=== PATIENT | male | born 1955 | race African-American/Black ===

== ENCOUNTER 2019-05-15 12:50 | Outpatient (RCR) | payer OTHER, SELFPAY ==
[2019-05-15 13:40] LABS: Hemoglobin A1C 7.7 % (<5.7)
[2019-05-15 13:49] LABS: Alanine Aminotransferase 54 U/L (4-50); Albumin Level 4.8 g/dL (3.5-5.1); Alkaline Phosphatase 90 U/L (38-126); Aspartate Amino Transferase 59 U/L (17-59); Bilirubin,Total 0.8 mg/dL (0.2-1.3); Blood Urea Nitrogen 12 mg/dL (9-20); Carbon Dioxide 29 mmol/L (22-30); Chloride 100 mmol/L (98-107); Cholesterol 204 mg/dL (0-200); Estimated Glomerular Filt Rate > 60; Glucose 115 mg/dL (75-110); HDL Direct 42 mg/dL; Potassium 4.3 mmol/L (3.4-5.0); Sodium 139 mmol/L (137-145); Triglycerides 99 mg/dL (<150)
[2019-05-15 14:00] LABS: LDL Cholesterol Direct 132 mg/dL
[2019-05-17 12:14] LABS: Protein S Antigen, Total 116 % normal (70-140)
== END 2019-08-13 23:59 | disposition home or self-care (01) ==
LOC: ANHLAB 12:50
DX: Z00.00 Encounter for general adult medical examination without abnormal findings (principal)
CPT/HCPCS: 36415; 80053; 80061; 83036; 84443; 85305

== ENCOUNTER 2019-05-30 10:30 | Outpatient (CLI) | payer OTHER, SELFPAY ==
--- NOTE | ~2019-05-30 | XR_ITS ---
EXAMINATION: XR chest 2V EXAM DATE: 05/30/2019 10:53 INDICATION: Pneumonia follow-up. TECHNIQUE: Frontal and lateral projections of the chest obtained and reviewed. Comparison is made to prior examination from 05/17/2019. FINDINGS: Cardiomegaly, pulmonary vascular congestion, with interval improvement. No confluent conso lidation, pneumothorax or pleural effusion suspected, resolution of previously seen scattered left pe rihilar predominantly linear opacities. Mild thoracic spondylosis. IMPRESSION: Improving cardiomegaly, pulmonary vascular congestion. Reviewed, dictated and finalized at location B. CLASSROOM TUTOR
== END 2019-05-30 10:31 | disposition home or self-care (01) ==
DX: J18.9 Pneumonia, unspecified organism (principal); I51.7 Cardiomegaly; R09.89 Other specified symptoms and signs involving the circulatory and respiratory systems
CPT/HCPCS: 71046

== ENCOUNTER 2019-06-05 12:57 | Inpatient (IN) | payer OTHER, SELFPAY ==
[2019-06-05] VITALS (10 sets, daily range): BP systolic 135–183; BP diastolic 83–104; PULSE 84–105; RESP 16–22; TEMP 36.3–36.9; O2SAT 87–99; BMI 32.1
--- NOTE | ~2019-06-05 | CT_ITS ---
EXAMINATION: CTA chest PE protocol DATE: 06/05/2019 17:28 INDICATION: Dyspnea TECHNIQUE: Computed tomography angiography (CTA) of the chest was performed with 100 mL Omnipaque-350 intravenous contrast timed to evaluate the pulmonary arteries. Coronal maximum intensity projection 3D-reconstructions were created by the technologist. Automated exposure control and iterative reconst ruction technique were employed. Exam dose: 574.94 mGy-cm total exam DLP. COMPARISON: 06/05/2021 view chest FINDINGS: There is moderate opacification of the pulmonary arteries by contrast material and no evide nce of pulmonary embolism. No thoracic aortic aneurysm or dissection. No pericardial or pleural effusion. No hilar or mediastinal mass lesion or lymphadenopathy. There is an approximately 8 x 11.5 mm mass in the right lower lobe anterior basilar segment, suspicio us for primary bronchogenic carcinoma. Bilateral patchy groundglass infiltrates are noted, suggesting small airways disease. There are recent posterior left ninth and 10th nondisplaced early healing rib fractures. No pneumotho rax is evident. No osteolytic or osteoblastic lesions are noted. IMPRESSION: 8 x 11.5 mm right lower lobe anterior basal segment mass, suspicious for primary broncho genic carcinoma Patchy bilateral groundglass pulmonary infiltrates, suggesting small airways disease No evidence of pulmonary embolism Recent posterior left ninth and 10th nondisplaced rib fractures Dr. Concepcion telephoned the report including right lower lobe mass suspicious for primary bronchogenic erick ng cancer as well as the absence of pulmonary emboli and the presence of posterior left ninth and 10t h rib fractures to emergency room physician Dr. Contreras on 02/03/2020 at 1740 hours Reviewed, dictated and finalized at Location A. Reviewed, dictated and finalized at location B. UDING DEPARTMENT SUPERVISOR IMPRESSION: 8 x 11.5 mm right lower lobe anterior basal segment mass, suspicio us for primary bronchogenic carcinoma Patchy bilateral groundglass pulmonary infiltrates, suggesting small airways di sease No evidence of pulmonary embolism Recent posterior left ninth and 10th nondisplaced rib fractures Dr. Concepcion telephoned the report including right lower lobe mass suspicious for p rimary bronchogenic lung cancer as well as the absence of pulmonary emboli and the presence of posterior left ninth and 10th rib fractures to emergency room britney Contreras on 02/03/2020 at 1740 hours
--- NOTE | ~2019-06-05 | XR_ITS ---
EXAMINATION: XR chest 2V EXAM DATE: 06/05/2019 14:08 INDICATION: Shortness of breath, low oxygen saturation. TECHNIQUE: Frontal and lateral projections of the chest obtained and reviewed. Comparison is made to prior examination from 05/30/2019. FINDINGS: The lungs are clear. There are no pleural effusions. The cardiomediastinal silhouette is within normal limits. There is no pneumothorax suspected. The bones and soft tissues are unremarkab le. IMPRESSION: Normal chest x-ray exam. Reviewed, dictated and finalized at location A. [employer] SHAPER K[employer]ITTED GOODS IMPRESSION: Normal chest x-ray exam.
--- NOTE | ~2019-06-05 | XR_ITS ---
XR chest 2V DATE: 06/07/2019 11:25 INDICATION: Pneumonia TECHNIQUE: PA and lateral chest COMPARISON: 06/22/2019 CT pulmonary scan 06/05/2021 view chest FINDINGS: 8.5 x 11 mm mass is noted at the right lung base upon comparison with 06/05/2019 CT pulmonary scan. No pulmonary consolidation, pleural effusion or pneumothorax. Heart size is within normal range. Mild aortic unfolding. No hilar or mediastinal enlargement. IMPRESSION: 8.5 x 11 mm right lower lung mass, suspicious for primary bronchogenic carcinoma. PET/CT scan should be considered. Reviewed, dictated and finalized at location B. ISH MAKER HELPER IMPRESSION: 8.5 x 11 mm right lower lung mass, suspicious for primary bronchoge mary carcinoma. PET/CT scan should be considered.
--- NOTE | 2019-06-05 13:24 | ECG_ITS ---
Measurements Intervals [place] Rate: 99 P: 48 SD: 155 QRS: -22 QRSD: 105 T: 81 QT: 336 QTc: 433 Interpretive Statements SINUS RHYTHM LEFT ATRIAL ENLARGEMENT POSSIBLE LEFT VENTRICULAR HYPERTROPHY DELAYED PRECORDIAL R/S TRANSITION MINIMAL Q WAVES- LATERAL LEADS BORDERLINE ST-T WAVE ABNORMALITY- LATERAL LEADS BORDERLINE ECG Electronically Signed On 06-05-2019 13:36:54 GENERAL LEDGER BOOKKEEPER by Cornelio Bill D.O.
[2019-06-05 13:43] LABS: Basophils Absolute Auto 0.1 K/mm3 (0.0-0.1); Basophils Percent Auto 0.7 % (0.2-1.2); Eosinophils Absolute Auto 0.1 K/mm3 (0-0.3); Eosinophils Percent Auto 0.8 % (0-4.4); Hematocrit 52.4 % (42.0-52.0); Hemoglobin 15.7 g/dL (14.0-18.0); Immature Granulocyte Absolute 0.09 K/mm3 (0.00-0.031); Lymphocytes Absolute Auto 1.78 K/mm3 (0.9-3.2); Lymphocytes Percent Auto 18.8 % (18.3-44.2); Mean Corpuscular Hemoglobin 25.2 pg (26-34); Mean Corpuscular Volume 84.1 fl (80-100); Mean Platelet Volume 11.1 fl (7.4-10.4); Monocytes Absolute Auto 0.7 K/mm3 (0.1-0.6); Monocytes Percent Auto 7.4 % (2.6-8.5); Neutrophils Absolute Auto 6.8 K/mm3 (1.3-6.7); Neutrophils Percent Auto 71.3 % (45.5-73.1); Nucleated Red Blood Cells Absolute Auto 0.1 K/mm3 (0.0-0.012); Nucleated Red Blood Cells Perc 1.2 % (0.0-0.2); Platelet Count Result 655 k/mm3 (150-375); Red Blood Count 6.23 M/mm3 (4.6-6.20); Red Cell Distribution Width 21.2 % (11.5-14.5); White Blood Count 9.5 K/mm3 (4.5-10.0)
[2019-06-05 13:55] LABS: Blood Urea Nitrogen 16 mg/dL (9-20); Carbon Dioxide 24 mmol/L (22-30); Chloride 104 mmol/L (98-107); Estimated Glomerular Filt Rate > 60; Glucose 104 mg/dL (75-110); Potassium 4.2 mmol/L (3.4-5.0); Sodium 141 mmol/L (137-145)
--- NOTE | 2019-06-05 15:41 | ED.SOB ---
HPI - SOB/Dyspnea General Chief Complaint: Shortness of Breath/Dyspnea Stated Complaint: sent by pmd to get oxygen level checked Time Seen by Provider: 06/05/19 15:37 Source: patient Mode of arrival: ambulatory Limitations: no limitations History of Present Illness HPI Narrative: Pt is a 63 y/o male who presents to the ED, from his PCP's office d/t low O2 Saturation. Pt states that he is intermittently SOB since he was Dx with pneumonia on 05/03/19. Pt denies cough, CP, fever, wheezing, or sore throat. MD elicited complaint: shortness of breath (low O2 Sat) Pertinent past history: pneumonia Onset (ago): day(s) (1) Associated symptoms: denies other symptoms Related Data Allergies Allergy/AdvReac Type Severity Reaction Status Date / Time No Known Allergies Allergy Unverified 08/26/18 19:44 Review of Systems Review of Systems: All systems reviewed & are unremarkable except as noted in HPI and below Constitutional: Constitutional: Denies fever(s) ENT: Denies sore throat Cardiovascular: Cardiovascular: Denies chest pain Respiratory: Respiratory: Denies cough, Reports dyspnea and Denies wheezing PMFSH Past Medical History Medical History (Updated 06/05/19 @ 18:30 by Jose Carlos Contreras DO) Anemia HTN (hypertension) Pneumonia Surgical History Surgical History (Updated 06/05/19 @ 15:53 by Shandra Bunch) H/O elbow surgery rt Social History Social History (Updated 06/05/19 @ 15:52 by Shandra Bunch) Smoking status: Former smoker Gender identity (if verbalized by the patient): Male Exam Narrative: Exam Narrative: APPEARANCE: No acute distress, nontoxic, resting in bed EYES: EOMI HEENT: Normocephalic, atraumatic, OMM RESPIRATORY: No respiratory distress Clear to auscultation bilaterally with no rhonchi wheezing or rales. CARDIOVASCULAR: Regular rate and rhythm without murmurs rubs or gallops. ABDOMINAL: Soft, nontender, nondistended, no rebound or guarding MUSCULOSKELETAl: Moves all extremities. No clubbing, cyanosis or edema. NEURO: Awake and alert. Following commands, speech normal, no focal deficits SKIN:: Warm, dry. No rashes lesions or abrasions PSYCHIATRIC: Normal affect/mood, Course Course Emergency Course: Discussed with CHAYA Ash presentation work-up. Agrees with admission at this time. Discussed with patient and family results of workup and diagnosis. Discussed need for admission. Patient and family understand and agree to current treatment plan. Discussed with patient lung mass concern for lung cancer Vital Signs Vital signs: Vital Signs Temperature 97.4 F L 06/05/19 13:25 Pulse Rate 105 H 06/05/19 13:25 Respiratory Rate 22 H 06/05/19 13:25 Blood Pressure 165/83 H 06/05/19 13:25 Pulse Oximetry 96 06/05/19 13:25 Temperature 97.4 F L 06/05/19 13:25 Pulse Rate 99 06/05/19 17:55 Respiratory Rate 16 06/05/19 17:55 Blood Pressure 156/84 H 06/05/19 17:55 Pulse Oximetry 92 06/05/19 17:55 MDM - SOB/Dyspnea Lab Data Result diagrams: 06/05/19 13:31 06/05/19 13:31 Labs: Lab Results 06/05/19 06/05/19 06/05/19 Range/Units 13:31 13:31 16:33 WBC 9.5 (4.5-10.0) K/mm3 RBC 6.23 H (4.6-6.20) M/mm3 Hgb 15.7 (14.0-18.0) g/dL Hct 52.4 H (42.0-52.0) % MCV 84.1 (80-100) fl MCH 25.2 L (26-34) pg MCHC 30.0 L (32-36) g/dl RDW 21.2 H (11.5-14.5) % Plt Count 655 H (150-375) k/mm3 MPV 11.1 H (7.4-10.4) fl Immature Gran % (Auto) 1.0 H (0-0.5) % Neut % (Auto) 71.3 (45.5-73.1) % Lymph % (Auto) 18.8 (18.3-44.2) % Anson % (Auto) 7.4 (2.6-8.5) % Eos % (Auto) 0.8 (0-4.4) % Baso % (Auto) 0.7 (0.2-1.2) % Lymph # (Auto) 1.78 (0.9-3.2) K/mm3 Anson # (Auto) 0.7 H (0.1-0.6) K/mm3 Eos # (Auto) 0.1 (0-0.3) K/mm3 Baso # (Auto) 0.1 (0.0-0.1) K/mm3 Abs Immat Gran (auto) 0.09 H (0.00-0.031) K/mm3 Absolute Neuts (auto) 6.8 H (1.3-6.7) K/mm3 Absolute
[2019-06-05] MEDS: ALBUTEROL SULFATE NEB 2.5 MG/0.5 ML INH 5 MG INHALATION ×2 (16:07→22:43)
[2019-06-05] MEDS: IPRATROPIUM BR 0.02% INH SOLN 0.5 MG/2.5 ML VIAL INHALATION ×2 (16:07→22:42)
[2019-06-05 16:15] LABS: Alveolar/Arterial O2 Gradient 91.6 mmHg; Base Excess ABG -0.4 mEq/l (+/-2.0); Fractional Inspired Oxygen 28 %; HCO3 ABG 23.4 mEq/l (22.0-26.0); Oxygen Content ABG 20.7 %vol (16.0-22.0); Oxygen Saturation ABG 93.6 % (95.0-100.0); Oxyhemoglobin 90.5 % THb (90.0-100.0); PO2 ABG 65.6 mmHg (80.0-100.0); PO2 FiO2 Ratio Arterial Blood 2.34 %; Site Drawn LEFT BRACHIAL; Total Hemoglobin 16.3 g/dL (12.0-18.0)
[2019-06-05 16:16] LABS: Device NASAL CANNULA
[2019-06-05 16:54] LABS: Prothrombin Time 12.9 Seconds (11.1-14.7)
[2019-06-05 16:55] LABS: Partial Thromboplastin Time 39.3 SECONDS (22.3-36.8)
[2019-06-05 17:08] LABS: NT Pro B Type Natriuretic Pept 58 PG/ML (5-100)
[2019-06-05 17:11] LABS: Troponin I < 0.012 ng/mL (0.000-0.034)
[2019-06-05 19:05] LABS: Lactic Acid Reflex 0.9 mmol/L (0.7-2.1)
--- NOTE | 2019-06-05 20:53 | ADMGEN ---
This patient, Kumar Henao, was admitted to [facility] Surg Room 316-02. Patient/family oriented to hospital policies and general routines including ID bracelet, bed and alarms, visiting hours, pain management, procedures, bathroom and other care routines, personal items, smoking policy, room service/diet, and visiting hours. Valuables list has been completed. Information on how to activate the Rapid Response Team has been discussed. Patient/Family are encouraged to report perceived risks to care and to ask questions if they do not understand what they are told or what they should do.
[2019-06-05 22:07] LABS: Glucose Point of Care 150 (65-105)
[2019-06-06] VITALS (13 sets, daily range): BP systolic 133–148; BP diastolic 83–89; PULSE 82–91; RESP 18–20; TEMP 36.1–36.9; O2SAT 91–96
[2019-06-06] MEDS: ALBUTEROL SULFATE NEB 2.5 MG/0.5 ML INH 5 MG INHALATION ×4 (03:47→21:51)
[2019-06-06] MEDS: IPRATROPIUM BR 0.02% INH SOLN 0.5 MG/2.5 ML VIAL INHALATION ×4 (03:47→21:51)
[2019-06-06 06:15] LABS: Basophils Percent Auto 0.4 % (0.2-1.2); Eosinophils Absolute Auto 0.1 K/mm3 (0-0.3); Eosinophils Percent Auto 0.7 % (0-4.4); Hematocrit 48.2 % (42.0-52.0); Hemoglobin 14.2 g/dL (14.0-18.0); Immature Granulocyte Absolute 0.07 K/mm3 (0.00-0.031); Immature Granulocyte Percent A 0.9 % (0-0.5); Lymphocytes Absolute Auto 1.71 K/mm3 (0.9-3.2); Lymphocytes Percent Auto 22.6 % (18.3-44.2); Mean Corpuscular HGB Conc 29.5 g/dl (32-36); Mean Corpuscular Hemoglobin 24.9 pg (26-34); Mean Corpuscular Volume 84.6 fl (80-100); Mean Platelet Volume 11.3 fl (7.4-10.4); Monocytes Absolute Auto 0.6 K/mm3 (0.1-0.6); Monocytes Percent Auto 7.7 % (2.6-8.5); Neutrophils Absolute Auto 5.1 K/mm3 (1.3-6.7); Neutrophils Percent Auto 67.7 % (45.5-73.1); Nucleated Red Blood Cells Absolute Auto 0.1 K/mm3 (0.0-0.012); Nucleated Red Blood Cells Perc 1.2 % (0.0-0.2); Platelet Count Result 552 k/mm3 (150-375); Red Cell Distribution Width 20.7 % (11.5-14.5); White Blood Count 7.6 K/mm3 (4.5-10.0)
[2019-06-06 06:25] LABS: Blood Urea Nitrogen 14 mg/dL (9-20); Calcium 9.3 mg/dL (8.4-10.2); Carbon Dioxide 26 mmol/L (22-30); Chloride 99 mmol/L (98-107); Estimated CRCL calculation 65 ml/min; Estimated Glomerular Filt Rate > 60; Glucose 123 mg/dL (75-110); Potassium 3.6 mmol/L (3.4-5.0); Sodium 137 mmol/L (137-145)
[2019-06-06 07:26] LABS: Hypochromasia 1+ (NORMAL); Platelet Estimate Increased (Adequate)
[2019-06-06 08:19] LABS: Magnesium 2.1 mg/dL (1.6-2.3)
--- NOTE | 2019-06-06 12:55 | PM.IMHP ---
H&P: HPI History of Present Illness Chief complaint: community-acquires pneumonia,lung mass,acute respi Narrative: Kumar Henao is a 63 year old male with past medical history of diabetes hypertension and long history of smoke he had been seen by his primary care physician was hypoxic % to emergency department for further evaluation patient had a CT scan of the chest which is negative for pulmonary emboli but does show pneumonia patient has a pneumonia most likely community-acquired as well as a mass patient is being treated with Rocephin and azithromycin is feeling little better compared to when he arrived, he denies any chest pain palpitation fever or chills, his is present in the room Review of Systems Review of Systems: All systems reviewed & are unremarkable except as noted in HPI and below PMFSH Past Medical History Medical History (Updated 06/06/19 @ 13:07 by Norberto Quinonez MD) Anemia Diabetes HTN (hypertension) Pneumonia Surgical History Surgical History (Updated 06/05/19 @ 15:53 by Shandra Bunch) H/O elbow surgery rt Social History Social History (Updated 06/05/19 @ 15:52 by Shandra Bunch) Smoking packs per day: 0.5 Smoking cigarettes per day: 10.0 Years smoked: 40 Smoking pack-years: 20.00 Smoking status: Former smoker Tobacco type: cigarettes Alcohol intake: former Substance use: never Gender identity (if verbalized by the patient): Male Spiritual care concerns: No Agree to blood products: No Meds Home Medications and Allergies Home Medications Medication Instructions Recorded Confirmed Type amlodipine 5 mg PO DAILY 06/05/19 06/05/19 History lisinopril 10 mg PO DAILY 06/05/19 06/05/19 History metformin 500 mg PO DAILY 06/05/19 06/05/19 History Allergies Allergy/AdvReac Type Severity Reaction Status Date / Time No Known Allergies Allergy Unverified 08/26/18 19:44 Vital Signs Vital Signs - 24 hr 06/05/19 13:25 06/05/19 15:43 06/05/19 16:18 Temperature 97.4 F L Pulse Rate 105 H 98 100 Respiratory Rate 22 H 22 H 20 Blood Pressure 165/83 H 178/104 H Pulse Oximetry 96 87 L 06/05/19 16:27 06/05/19 16:34 06/05/19 17:55 Temperature Pulse Rate 101 H 99 99 Respiratory Rate 18 16 Blood Pressure 183/95 H 156/84 H Pulse Oximetry 99 92 06/05/19 20:30 06/05/19 22:00 06/05/19 22:42 Temperature 98.3 F 98.5 F Pulse Rate 85 87 84 Respiratory Rate 18 18 18 Blood Pressure 155/93 H 135/86 Pulse Oximetry 93 94 92 06/05/19 22:52 06/06/19 03:49 06/06/19 03:54 Temperature Pulse Rate 87 82 88 Respiratory Rate 18 18 18 Blood Pressure Pulse Oximetry 06/06/19 05:58 06/06/19 08:25 06/06/19 08:34 Temperature 98.4 F Pulse Rate 84 84 88 Respiratory Rate 18 20 20 Blood Pressure 133/89 Pulse Oximetry 92 94 Exam Const: General: comfortable and no acute distress HENMT: General nose exam: Normal nares present Mouth: Yes moist mucous membranes Eyes: General: appearance normal, both eyes and all related structures Sclera: sclerae normal Neck: Neck: supple Chest: Other: No obvious deformity Resp: Other: Bilateral fair air entry with rhonchi Cardio: Rate: regular rate Rhythm: regular rhythm GI: GI Palp: Yes Soft to palpation Skin: General skin exam: normal color and no rashes or lesions noted Neuro: Speech: normal speech Sensory Exam: normal sensation Extrem: General: normal to inspection Psych: Affect: Anxious affect present H&P: Results Labs Labs: Short CBC 06/05/19 06/06/19 Range/Units 13:31 05:44 WBC 9.5 7.6 (4.5-10.0) K/mm3 Hgb 15.7 14.2 (14.0-18.0) g/dL Hct 52.4 H 48.2 (42.0-52.0) % Plt Count 655 H 552 H (150-375) k/mm3 BMP 06/05/19 06/06/19 13:31 05:44 Sodium 141 137 Potassium 4.2 3.6 Chloride 104 99 Carbon Dioxide 24 26 BUN 16 14 Creatinine 1.00 1.10 Glucose 104 123 H Calcium 10.0 9.3 Cardiac Enzymes 06/05/19 Range/Uni
[2019-06-06] MEDS: AMLODIPINE BESYLATE 5 MG TABLET PO (14:17)
[2019-06-06] MEDS: lisinopriL 10 MG TABLET PO (14:17)
--- NOTE | 2019-06-06 17:25 | PM.CNPUL ---
Assessment and Plan Assessment and plan (1) Nodule of right lung: Code(s): R91.1 - Solitary pulmonary nodule Status: Acute Assessment and Plan: There is a nodule 8 x 11.5 mm in the RLL, which will be followed after discharge. He is acutely ill, on O2, antibiotics, and this is small enough and non-urgent. It is far enough from the chest wall that he is at risk for a ptx wit ng CT guided biopsy, not close enough to an airway to access by bronchoscopy. If cancer, this is stage I. Explained to the patient and that he needs to recover from this episode, have follow-up in the office including probable repeat chest CT possible PET scan. 06/05/2019 admitted with hypoxemia, infiltrates/pulm edema, RLL nodule 8 x 11.5; needs op f/u for nodule; suspected COPD and LAYLA. No tobacco x 6 weeks. Starting Symbicort, getting ApneaLink and echo. Wean O2. May be ready to go home 1-2 d. (2) Acute respiratory failure with hypoxia: Code(s): J96.01 - Acute respiratory failure with hypoxia Status: Acute Assessment and Plan: He was hypoxemic at his primary care physician yesterday, now is on3 L/min with saturation 92-96%. His saturations improving and this can be weaned. He needs home oxygen study before discharge. (3) Tobacco abuse, in remission: Code(s): F17.201 - Nicotine dependence, unspecified, in remission Status: Acute Assessment and Plan: Recently quit about 6 weeks ago. He has a 20 pack-year history has also smoked some marijuana. He needs to avoid secondhand smoke. (4) Shortness of Breath: Code(s): R06.02 - Shortness of breath Status: Acute Assessment and Plan: This has improved since admission. He will need pulmonary function tests in 6-8 weeks to evaluate for COPD. Will start Symbicort nowl in addition to the nebulized bronchodilator therapy that he is on. This may help with the chronic coughing and sputum production. His says that he has been coughing with morning sputum production not daily, but often, for the last 6 months. May have COPD. His shortness of breath now is due to pneumonia. because have shown pulmonary edema and he has high blood pressure it is reasonable to get an echocardiogram. (5) Community acquired pneumonia: Code(s): J18.9 - Pneumonia, unspecified organism Status: Acute Assessment and Plan: He has infiltrates which appeared May 17, 2 weeks after falling and breaking 2 ribs on the left side. Some of the area may have been due to contusion. He has green sputum, cough, shortness of breath and hypoxemia, better with O2, antibiotics and bronchodilators. (6) HTN (hypertension): Code(s): I10 - Essential (primary) hypertension Status: Acute Assessment and Plan: Blood pressure is running 140-150 systolic. He has not been compliant with meds at home and recently had a 2nd low-dose medication added. He just stopped taking his meds for a month, no reason. CXR shows pulmonary vascular congestion. (7) Snoring: Code(s): R06.83 - Snoring Status: Acute Assessment and Plan: Will check Apnea Link tonight, on lower O2 than he is on now. On 3 L/min sat is now 96%, so this can be weaned. History of Present Illness History of Present Illness Consult date: 06/06/19 Chief complaint: community-acquires pneumonia,lung mass,acute respi Narrative: NEW CONSULT: Dr. Quinonez consulted me to see this pa
[2019-06-07] VITALS (10 sets, daily range): BP systolic 150–151; BP diastolic 87–94; PULSE 78–110; RESP 18–20; TEMP 36.5–36.7; O2SAT 83–96
--- NOTE | 2019-06-07 08:00 | ECHO_ITS ---
Patient Info Name: Kumar Henao Age: 63 years : 1955 Gender: Male Ht: 66 in Wt: 211 lbs BSA: 2.15 m2 HR: 91 bpm BP: 143 / 83 mmHg Technical Quality: Good Exam Date: 06/07/2019 10:02 AM Exam Location: [facility] Pulmonary Exam Room: [facility] Patient Status: Inpatient Admit Date: 06/05/2019 Staff Ordering Physician: Lissa Stoll MD Creamery Worker: Liliana Schmidt RDCS Attending Provider: Parviz Church MD Referring Physician: Jerman GUZMAN; Exam Type: CA echo doppler color flow Study Info Indications - short of breath Complete two-dimensional, color flow and Doppler transthoracic echocardiogram is performed. Summary 1. Left ventricular chamber dimension is normal. 2. Left ventricular systolic function is normal, estimated at 65-70%. 3. There is moderately increased left ventricular wall thickness. 4. The left ventricular diastolic function is grade I diastolic dysfunction. 5. E/e' 11 is mildly elevated. 6. Left atrial chamber dimension is mildly enlarged. 7. Right atrial chamber dimension is mildly enlarged. 8. There is trace tricuspid valve regurgitation. 9. No pulmonary hypertension, estimated pulmonary arterial systolic pressure is 32 mmHg. 10. There is trace pulmonic regurgitation. Left Ventricle E/e' 11 is mildly elevated. Left ventricular chamber dimension is normal. Left ventricular systolic function is normal, estimated at 65-70%. There is moderately increased left ventricular wall thickness. The left ventricular diastolic function is grade I diastolic dysfunction. Right Ventricle Right ventricular chamber dimension is normal. Right ventricular systolic function is normal. Left Atria Left atrial chamber dimension is mildly enlarged. Right Atria Right atrial chamber dimension is mildly enlarged. Aortic Valve The aortic valve is trileaflet. There is no aortic valve stenosis. There is no aortic valve regurgitation. Pulmonic Valve There is trace pulmonic regurgitation. Mitral Valve There is no mitral valve stenosis. There is no mitral valve regurgitation. Tricuspid Valve There is trace tricuspid valve regurgitation. No pulmonary hypertension, estimated pulmonary arterial systolic pressure is 32 mmHg. Pericardium/Pleural There is no pericardial effusion. Inferior Vena Cava Normal inferior vena cava with >50% collapse upon inspiration consistent with normal right atrial pressure, 5 mmHg. Aorta The aortic root size at the sinus of Valsalva is normal. Left Ventricular Outflow Tract Name Value Normal LVOT 2D LVOT Diameter 2.1 cm LVOT Doppler LVOT Peak Gradient 4 mmHg LVOT Mean Gradient 3 mmHg LVOT VTI 18 cm LVOT VTI/AV VTI Ratio 0.6 LVOT Stroke Volume 65 ml LVOT CO 17.2 l/min LVOT CI 8.0 l/min/m2 Pulmonic Valve Name Value
[2019-06-07] MEDS: ALBUTEROL SULFATE NEB 2.5 MG/0.5 ML INH 5 MG INHALATION ×2 (08:03→13:28)
[2019-06-07] MEDS: IPRATROPIUM BR 0.02% INH SOLN 0.5 MG/2.5 ML VIAL INHALATION ×2 (08:03→13:28)
[2019-06-07] MEDS: metFORMIN HCL XR 500 MG TAB.SR.24H PO (08:51)
[2019-06-07] MEDS: lisinopriL 10 MG TABLET PO (08:51)
[2019-06-07] MEDS: AMLODIPINE BESYLATE 5 MG TABLET PO (08:51)
--- NOTE | 2019-06-07 13:56 | PCRCNOTE ---
HOME O2 EVAL COMPLETE, NO REQUIREMENTS
--- NOTE | 2019-06-07 14:41 | PM.PNPUL ---
Progress Note: A&P Assessment and Plan (1) Nodule of right lung: Code(s): R91.1 - Solitary pulmonary nodule Status: Acute Assessment and Plan: Nodule 8 x 11.5 mm in the RLL,will follow after discharge. improved from current illness, O2 weaned off. It is not close to the periphery of the lung and he is at risk for a pneumothorax CT guided biopsy; it is not close enough to an airway to access by bronchoscopy. If cancer, this is stage I. Explained to the patient and that he needs to recover from this episode, have follow-up in the office including chest CT-PET scan. 06/05/2019 admitted with hypoxemia, infiltrates/pulm edema, RLL nodule 8 x 11.5; needs op f/u for nodule; suspected COPD and LAYLA. No tobacco x 6 weeks. Cont Symbicort, morning labs are being drawn now. Out patient PET-CT. Echo and ApneaLink results pending. OK to go home today.. (2) Acute respiratory failure with hypoxia: Code(s): J96.01 - Acute respiratory failure with hypoxia Status: Acute Assessment and Plan: He was hypoxemic at his primary care physician yesterday, now is on room air. O2 was weaned. (3) Tobacco abuse, in remission: Code(s): F17.201 - Nicotine dependence, unspecified, in remission Status: Acute Assessment and Plan: Recently quit about 6 weeks ago. He has a 20 pack-year history has also smoked some marijuana. He needs to avoid secondhand smoke. (4) Shortness of Breath: Code(s): R06.02 - Shortness of breath Status: Acute Assessment and Plan: This has improved since admission. He will need pulmonary function tests in 6-8 weeks to evaluate for COPD. Will start Symbicort nowl in addition to the nebulized bronchodilator therapy that he is on. This may help with the chronic coughing and sputum production. His says that he has been coughing with morning sputum production not daily, but often, for the last 6 months. May have COPD. His shortness of breath now is due to pneumonia. because have shown pulmonary edema and he has high blood pressure it is reasonable to get an echocardiogram. (5) Community acquired pneumonia: Code(s): J18.9 - Pneumonia, unspecified organism Status: Acute Assessment and Plan: He has infiltrates which appeared May 17, 2 weeks after falling and breaking 2 ribs on the left side. Some of the area may have been due to contusion. He has green sputum, cough, shortness of breath and hypoxemia, better with O2, antibiotics and bronchodilators. (6) HTN (hypertension): Code(s): I10 - Essential (primary) hypertension Status: Acute Assessment and Plan: Blood pressure is running 140-150 systolic. He has not been compliant with meds at home and recently had a 2nd low-dose medication added. He just stopped taking his meds for a month, no reason. CXR shows nodule in RLL. (7) Snoring: Code(s): R06.83 - Snoring Status: Acute Assessment and Plan: Will check Apnea Link results from last night. Subjective Date/time seen: 06/07/19 14:41 This 63 yo man is seen in follow up for RLL nodule noted on CXR when admitted with pneumonia with underlying COPD. He feels great, has been weaned off O2, Home O2 evaluation is negative for requiring O2. He wants to go home. Appears stable, echo results and ApneaLink results pending. He is stable for discharge today. Review of Systems ENT: Reports nasal conges
[2019-06-07 15:01] LABS: Hematocrit 51.9 % (42.0-52.0); Hemoglobin 15.2 g/dL (14.0-18.0); Mean Corpuscular HGB Conc 29.3 g/dl (32-36); Mean Corpuscular Hemoglobin 24.9 pg (26-34); Mean Corpuscular Volume 85.1 fl (80-100); Mean Platelet Volume 11.8 fl (7.4-10.4); Platelet Count Result 648 k/mm3 (150-375); Red Cell Distribution Width 21.2 % (11.5-14.5); White Blood Count 7.9 K/mm3 (4.5-10.0)
[2019-06-07 15:04] LABS: Blood Urea Nitrogen 13 mg/dL (9-20); Calcium 10.2 mg/dL (8.4-10.2); Carbon Dioxide 29 mmol/L (22-30); Chloride 102 mmol/L (98-107); Estimated CRCL calculation 71 ml/min; Estimated Glomerular Filt Rate > 60; Glucose 133 mg/dL (75-110); Potassium 4.6 mmol/L (3.4-5.0); Sodium 143 mmol/L (137-145)
--- NOTE | 2019-06-07 15:11 | PM.DS ---
DS: Diagnosis Admitting Diagnosis Admitting Diagnosis: Acute respiratory failure with hypoxia Discharge Diagnosis (1) Acute respiratory failure with hypoxia: Code(s): J96.01 - Acute respiratory failure with hypoxia Status: Acute Assessment and Plan: Kumar Henao is a 63 year old male with past medical history of diabetes hypertension and long history of smoke he had been seen by his primary care physician was hypoxic % to emergency department for further evaluation patient had a CT scan of the chest which is negative for pulmonary emboli but does show pneumonia patient has a pneumonia most likely community-acquired as well as a mass patient is being treated with Rocephin and azithromycin is feeling little better compared to when he arrived, he denies any chest pain palpitation fever or chills, his is present in the room (2) Community acquired pneumonia: Code(s): J18.9 - Pneumonia, unspecified organism Status: Acute Assessment and Plan: Patient is being treated with Rocephin azithromycin will repeat checks x-ray is in 2 days to further evaluate (3) Lung mass: Code(s): R91.8 - Other nonspecific abnormal finding of lung field Status: Acute Assessment and Plan: Patient with history of long time smoking now with a pulmonary mass will consult Dr. Stoll further recommendation (4) Diabetes: Code(s): E11.9 - Type 2 diabetes mellitus without complications Status: Acute Assessment and Plan: Will continue home regimen and monitor (5) HTN (hypertension): Code(s): I10 - Essential (primary) hypertension Status: Acute Assessment and Plan: Will continue home regimen and monitor DS: Summary Hospital Course Reason for hospitalization: Kumar Henao is a 63 year old male with past medical history of diabetes hypertension and long history of smoke he had been seen by his primary care physician was hypoxic % to emergency department for further evaluation patient had a CT scan of the chest which is negative for pulmonary emboli but does show pneumonia patient has a pneumonia most likely community-acquired as well as a mass patient is being treated with Rocephin and azithromycin is feeling little better compared to when he arrived, he denies any chest pain palpitation fever or chills, Today patient was seen by Dr. Stoll, patient is clinically stable was started on symbicort, he will follow up as an outpatient for [facility], and [facility] echo for futher evaluation, will discharge patient home today. Hospital Course: Kumar Henao is a 63 year old male with past medical history of diabetes hypertension and long history of smoke he had been seen by his primary care physician was hypoxic % to emergency department for further evaluation patient had a CT scan of the chest which is negative for pulmonary emboli but does show pneumonia patient has a pneumonia most likely community-acquired as well as a mass patient is being treated with Rocephin and azithromycin is feeling little better compared to when he arrived, he denies any chest pain palpitation fever or chills, his is present in the room Status at Discharge Cognitive/behavioral status at discharge: Patient is bed baseline Functional status at discharge: independent ambulation Overall status at discharge: patient is back to baseline Time Spent with Patient Time attestation: Total time spent providing and/or coordinating discharge services: Patient was seen and examined at the time of the discharge Condition at discharge is stable Code status: Full code. Time spent preparing discharge summary, discharge medications, discussing discharge planning with field nurse case manager and patient is 35 minutes. Time spent: Greater than 30 minutes Exam Const: General: comfortable and no acute distress HENMT: General nose exam: Normal nares present Mouth: Yes moist mucous membranes Eyes: General: appearance normal, both eyes an
== END 2019-06-07 15:30 | disposition home or self-care (01) | DRG 139 ==
LOC: ANHED 18:33 → ANH3MEDSUR 19:01
PROVIDERS: Emergency Medicine; Admitting Provider Internal Medicine; Emergency Provider Emergency Medicine; Visit Provider Family Medicine
DX: J18.9 Pneumonia, unspecified organism (principal); J96.01 Acute respiratory failure with hypoxia; E11.9 Type 2 diabetes mellitus without complications; I10 Essential (primary) hypertension; R91.1 Solitary pulmonary nodule; Z87.891 Personal history of nicotine dependence; Z91.14 Patient's other noncompliance with medication regimen; H91.92 Unspecified hearing loss, left ear; R06.83 Snoring
CPT/HCPCS: 36415; 36600; 71046; 71275; 80048; 82805; 83605; 83735; 83880; 84484; 85025; 85027; 85610; 85730; 87040; 87804; 93005; 93306; 94618; 94640; 94762; 96365; 99285; A9270; J0456; J0696; Q9967

== ENCOUNTER 2019-07-11 11:01 | Outpatient (CLI) | payer OTHER, SELFPAY ==
--- NOTE | ~2019-07-11 | PE_ITS ---
EXAMINATION: PET skull to mid thigh DATE: 07/11/2019 13:30 INDICATION: Solitary pulmonary nodule. TECHNIQUE: Blood glucose level was 98 mg/dL. 8.959 mCi of 18-fluorodeoxyglucose (18-FDG) was administ ered i.v. Low dose computed tomography (CT) images were acquired from the base of the brain to the pr oximal thighs for attenuation correction and anatomic localization. Automated exposure control was em ployed. Dose-length product (DLP) was 935 mGy-cm. Positron emission tomography (PET) images were acqu ired in the same distribution. COMPARISON: Chest CT 06/05/2019 FINDINGS: Head/neck: There is increased activity in the oral cavity, prevertebral muscles, glottis, and right p terygoid muscle without CT correlate, likely physiologic. There are no pathologically enlarged lymph nodes. Chest: There is mild emphysema. There is a 10 mm nodule in right lung lower lobe without increased ac tivity. No pleural effusion. Cardiomegaly is noted. There are coronary artery calcifications. No lizzie cardial effusion. Calcified left hilar and mediastinal lymph nodes are consistent with old granulomat ous disease. Abdomen/pelvis/proximal thighs: The liver is normal. There are gallstones in the gallbladder, which i s normal in size. There is mild splenomegaly. Calcifications in the spleen are consistent with old gr anulomatous disease. The pancreas, adrenal glands, and kidneys are normal. There are no dilated loops of bowel. There is an umbilical hernia containing fat. There are no pathologically enlarged lymph no car. There is no free intraperitoneal fluid. The prostate is mildly enlarged. There is increased acti vity in multiple vertebral bodies without CT correlate, likely bone marrow stimulation. IMPRESSION: 1. Stable 10 mm nodule in right lung lower lobe without increased activity, probably benign. Noncont rast low-dose chest CT is recommended in 6 months. Reviewed, dictated and finalized at location A. IMPRESSION: 1. Stable 10 mm nodule in right lung lower lobe without increased activity, pr obably benign. Noncontrast low-dose chest CT is recommended in 6 months.
[2019-07-11 11:19] LABS: Glucose Point of Care 98 (65-105)
== END 2019-07-11 11:02 | disposition home or self-care (01) ==
PROVIDERS: PCP Nurse Practitioner Family; Visit Provider Internal Medicine Critical Care Medicine
DX: R91.1 Solitary pulmonary nodule (principal); E11.9 Type 2 diabetes mellitus without complications
CPT/HCPCS: 78815; A9552

== ENCOUNTER 2021-08-25 23:36 | Emergency (ER) | payer OTHER, SELFPAY ==
[2021-08-25 23:46] VITALS: BP 141/79; PULSE 88; RESP 18; TEMP 36.3; O2SAT 98
--- NOTE | 2021-08-26 01:21 | ED.SKABFB ---
HPI - Skin/Abscess/Foreign Bdy General Chief complaint: Skin/Abscess/Foreign Body <COREY Gabriel Last Filed: 08/26/21 01:34> Stated complaint: Shingles <COREY Gabriel Last Filed: 08/26/21 01:34> Time Seen by Provider: 08/26/21 00:48 <COREY Gabriel Last Filed: 08/26/21 01:34> Source: patient <COREY Gabriel Last Filed: 08/26/21 01:34> Mode of arrival: ambulatory <COREY Gabriel Last Filed: 08/26/21 01:34> Limitations: no limitations <COREY Gabriel Last Filed: 08/26/21 01:34> History of Present Illness HPI narrative: This is a 65-year-old male that presents to the emergency department for a rash that he noted today. Does report currently finishing an antibiotic for an abscess of his groin. He is unsure what antibiotic he is on. Reports the rashes on his neck and chest. Denies fever, itching, or drainage. <COREY Gabriel Last Filed: 08/26/21 01:34> Related Data Home medications: Home Medications Medication Instructions Recorded Confirmed amlodipine 5 mg PO DAILY 06/05/19 06/05/19 lisinopril 10 mg PO DAILY 06/05/19 06/05/19 metformin 500 mg PO DAILY 06/05/19 06/05/19 <COREY Gabriel Last Filed: 08/26/21 01:34> Allergies/Adverse reactions: Allergies Allergy/AdvReac Type Severity Reaction Status Date / Time No Known Allergies Allergy Verified 08/26/21 01:15 <COREY Gabriel Last Filed: 08/26/21 01:34> Review of Systems Review of Systems: CONSTITUTIONAL: Denies fever SKIN: Reports rash. Denies itching. <COREY Gabriel Last Filed: 08/26/21 01:34> All systems reviewed & are unremarkable except as noted in HPI and below <Sahara Still PA-C - Last Filed: 08/26/21 01:34> [facility] Past Medical History Medical History: Medical History (Updated 08/26/21 @ 01:27 by Sahara Still PA-C) Anemia Diabetes HTN (hypertension) Pneumonia <Sahara Still PA-C - Last Filed: 08/26/21 01:34> Surgical History Surgical History: Surgical History (Updated 06/05/19 @ 15:53 by Shandra Bunch) H/O elbow surgery rt <Sahara Still PA-C - Last Filed: 08/26/21 01:34> Family History Family History: Family History (Updated 06/06/19 @ 18:11 by Lissa Stoll MD) Sibling Age: 70 Carcinoma of colon, Onset Age: 66 treated for colon cancer, doing well <Sahara Still PA-C - Last Filed: 08/26/21 01:34> Social History Social History: Social History (Updated 07/04/19 @ 14:55 by Poornima Spann [facility]) Years smoked: 40 Smoking status: Former smoker Tobacco type: cigarettes Second hand tobacco smoke exposure: No Alcohol intake: former Substance use: never Gender identity (if verbalized by the patient): Male Spiritual care concerns: No Agree to blood products: No <Sahara Still PA-C - Last Filed: 08/26/21 01:34> Exam Narrative: GENERAL: Well-appearing, well-nourished, and in no acute distress. HEAD: Normocephalic, atraumatic. EYES: EOMI. CHEST: No respiratory distress. HEART: Regular rate EXTREMITIES: Normal range of motion. No edema. SKIN: Warm, dry. Red, maculopapular rash present on the neck and chest NEURO: No focal deficits. Alert and oriented x3. PSYCH: Normal mood and affect <Sahara Still PA-C - Last Filed: 08/26/21 01:34> Course Vital Signs Vital signs: Vital Signs Temperature 97.3 F L 08/25/21 23:46 Pulse Rate 88 08/25/21 23:46 Respiratory Rate 18 08/25/21 23:46 Blood Pressure 141/79 H 08/25/21 23:46 Pulse Oximetry 98 08/25/21 23:46 Temperature 97.3 F L 08/25/21 23:46 Pulse Rate 70 08/26/21 01:38 Respiratory Rate 16 08/26/21 01:38 Blood Pressure 132/70 08/26/21 01:38 Pulse Oximetry 98 08/26/21 01:38 <Sahara Still PA-C - Last Filed: 08/26/21 01:34> MDM - Skin/Abscess/Foreign Bdy MDM Narrative Medical decision making narrative:
[2021-08-26 01:38] VITALS: BP 132/70; PULSE 70; RESP 16; O2SAT 98
== END 2021-08-26 01:39 | disposition home or self-care (01) ==
PROVIDERS: Emergency Provider Emergency Medicine; PCP Nurse Practitioner Family
DX: R21 Rash and other nonspecific skin eruption (principal); E11.9 Type 2 diabetes mellitus without complications; I10 Essential (primary) hypertension; Z87.01 Personal history of pneumonia (recurrent); Z86.2 Personal history of diseases of the blood and blood-forming organs and certain disorders involving the immune mechanism
CPT/HCPCS: 99283

== ENCOUNTER 2021-10-31 09:50 | Outpatient (CLI) | payer OTHER, SELFPAY ==
[2021-10-31 10:47] LABS: Alanine Aminotransferase 45 U/L (6-50); Albumin Level 4.5 g/dL (3.5-5.1); Alkaline Phosphatase 64 U/L (38-126); Anion Gap 10 mmol/L (8-16); Aspartate Amino Transferase 52 U/L (17-59); Bilirubin,Total 0.6 mg/dL (0.2-1.3); Blood Urea Nitrogen 12 mg/dL (9-20); Calcium 9.3 mg/dL (8.4-10.2); Carbon Dioxide 23 mmol/L (22-30); Chloride 102 mmol/L (98-107); Cholesterol 140 mg/dL (0-200); Estimated Glomerular Filt Rate > 60; Glucose 333 mg/dL (65-110); HDL Direct 36 mg/dL; Potassium 4.8 mmol/L (3.4-5.0); Sodium 135 mmol/L (137-145); Triglycerides 124 mg/dL (<150)
[2021-10-31 10:57] LABS: LDL Cholesterol Direct 76 mg/dL
[2021-10-31 11:14] LABS: Prostate Specific Antigen 0.8 ng/mL (< OR = 4.0)
[2021-10-31 11:45] LABS: Microalbumin Urine Random 291.8 mg/L (0-16.7)
== END 2021-10-31 09:51 | disposition home or self-care (01) ==
LOC: ANHLAB 09:55
PROVIDERS: PCP Nurse Practitioner Family; Visit Provider Nurse Practitioner Family
DX: E11.9 Type 2 diabetes mellitus without complications (principal); Z12.5 Encounter for screening for malignant neoplasm of prostate; I10 Essential (primary) hypertension
CPT/HCPCS: 36415; 80053; 80061; 82043; 84153; 84443; G0103

== ENCOUNTER 2024-02-06 03:56 | Emergency (ER) | payer OTHER, SELFPAY ==
[2024-02-06 04:00] VITALS: BP 141/65; PULSE 87; RESP 24; TEMP 36.4; O2SAT 66
[2024-02-06 04:07] VITALS: BP 141/65; PULSE 88; RESP 20; TEMP 36.4; O2SAT 95; O2SAT 96
[2024-02-06] MEDS: PHENYLEPHRINE 1% NA SPR (*BKC) 15 ML BTL 2 SPRAY NASAL (04:09)
--- NOTE | 2024-02-06 04:40 | ED.GENADULT ---
HPI - General Adult General Chief complaint: Epistaxis Stated complaint: nosebleed Time Seen by Provider: 02/06/24 04:00 History of Present Illness HPI narrative: Patient 68-year-old gentleman who presents emergency department with chief complaint of epistaxis. Patient reports that he wears home oxygen and reports that he started having bleeding from his nose the patient states that he stuck some tissue up his nose and came to the emergency department the patient normally wears 2 L the patient reports that the bleeding has essentially stopped at this time Related Data Home Medications Medication Instructions Recorded Confirmed amlodipine 5 mg tablet 5 mg PO DAILY 06/05/19 06/05/19 lisinopril 10 mg tablet 10 mg PO DAILY 06/05/19 06/05/19 metformin 500 mg tablet,extended 500 mg PO DAILY 06/05/19 06/05/19 release 24 hr Allergies Allergy/AdvReac Type Severity Reaction Status Date / Time No Known Allergies Allergy Verified 08/26/21 01:15 Review of Systems Review of Systems: A 10 system review of systems was completed on the patient and is negative except for what is stated in the HPI. Nursing and ancillary documentation was reviewed. PMFSH Past Medical History Medical History Anemia Diabetes HTN (hypertension) Pneumonia Surgical History Surgical History H/O elbow surgery rt Family History Family History Sibling Age: 72 Carcinoma of colon, Onset Age: 67 treated for colon cancer, doing well Social History Social History Years smoked: 40 Smoking status: Former smoker Tobacco type: cigarettes Second hand tobacco smoke exposure: No Alcohol intake: former Substance use: never Gender identity (if verbalized by the patient): Male Spiritual care concerns: No Agree to blood products: No Exam Narrative: GENERAL: Well-appearing, well-nourished, and in no acute distress. HEAD: Normocephalic, atraumatic. EYES: PERRLA and EOMI. ENT: Nares clear, no rhinorrhea or epistaxis. Mucous membranes moist. NECK: Supple. CHEST: Clear to auscultation. No respiratory distress. HEART: Regular rate and rhythm. No murmur heard. Normal peripheral pulses. ABDOMEN: Soft, nontender, nondistended, normal active bowel sounds. EXTREMITIES: Normal range of motion. No edema. SKIN: Warm, dry, no rash. NEURO: No focal deficits. Alert and oriented x3. PSYCH: Normal mood and affect. Course Vital Signs Vital signs: Vital Signs Temperature 36.4 C 02/06/24 04:00 Pulse Rate 87 02/06/24 04:00 Respiratory Rate 24 H 02/06/24 04:00 Blood Pressure 141/65 H 02/06/24 04:00 Pulse Oximetry 66 L 02/06/24 04:00 Oxygen Delivery Room Air 02/06/24 04:00 Temperature 36.4 C 02/06/24 04:07 Pulse Rate 88 02/06/24 04:07 Respiratory Rate 20 02/06/24 04:07 Blood Pressure 141/65 H 02/06/24 04:07 Pulse Oximetry 95 02/06/24 04:07 Oxygen Delivery Nasal Cannula 02/06/24 04:07 Oxygen Flow Rate 2 02/06/24 04:07 Medical Decision Making MDM Narrative Medical decision making narrative: Differential diagnosis includes epistaxis. The patient's bleeding and stopped the emergency department upon arrival Colin-Synephrine. Vital Signs Vital Signs: Vital Signs Temperature 36.4 C 02/06/24 04:00 Pulse Rate 87 02/06/24 04:00 Respiratory Rate 24 H 02/06/24 04:00 Blood Pressure 141/65 H 02/06/24 04:00 Pulse Oximetry 66 L 02/06/24 04:00 Oxygen Delivery Room Air 02/06/24 04:00 Temperature 36.4 C 02/06/24 04:07 Pulse Rate 88 02/06/24 04:07 Respiratory Rate 20 02/06/24 04:07 Blood Pressure 141/65 H 02/06/24 04:07 Pulse Oximetry 95 02/06/24 04:07 Oxygen Delivery Nasal Cannula 02/06/24 04:07 Oxy
[2024-02-06 05:30] VITALS: BP 140/92; PULSE 79; RESP 20; O2SAT 95
== END 2024-02-06 05:30 | disposition home or self-care (01) ==
PROVIDERS: Emergency Provider Emergency Medicine
DX: R04.0 Epistaxis (principal); I10 Essential (primary) hypertension; E11.9 Type 2 diabetes mellitus without complications; Z87.891 Personal history of nicotine dependence; Z99.81 Dependence on supplemental oxygen; Z79.84 Long term (current) use of oral hypoglycemic drugs
CPT/HCPCS: 99282; A9270

== ENCOUNTER 2024-06-03 11:40 | Emergency (ER) | payer OTHER, SELFPAY ==
--- NOTE | ~2024-06-03 | US_ITS ---
EXAMINATION: US venous doppler [facility] DATE: 06/03/2024 15:47 INDICATION: edema . TECHNIQUE: Grayscale images without and with compression and Doppler images of the bilateral lower ex tremity veins were obtained. COMPARISON: None FINDINGS: The right common femoral vein, profunda (deep) femoral vein, femoral vein, popliteal vein, peroneal v ein, posterior tibial veins, gastrocnemius vein, and greater saphenous vein are patent. The left common femoral vein, profunda (deep) femoral vein, femoral vein, popliteal vein, peroneal v ein, posterior tibial veins, gastrocnemius vein, and greater saphenous vein are patent. IMPRESSION: Patent bilateral lower extremity veins. No evidence of deep venous thrombosis. Reviewed, dictated and finalized at location K. ERCIAL AIRLINE PILOT
--- NOTE | ~2024-06-03 | XR_ITS ---
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 RESULT: Lines, tubes, and devices: None. Lungs and pleura: Scattered patchy subsegmental airspace and groundglass opacities. Mild diffuse ret icular opacities and indistinct vessels. No pleural effusion or pneumothorax. 1.2 cm right lower lobe pulmonary nodule, likely granuloma Cardiomediastinal silhouette: Stable. Other: No acute osseous or upper abdominal finding. IMPRESSION: Pulmonary opacities likely representing mild pulmonary edema. Infection is not excluded. Reviewed, dictated and finalized at location K. TERING FILTERING SUPERVISOR
--- OUTSIDE RECORDS SUMMARY | 2024-06-03 11:42 | XMS_ITS | CONTINUITY OF CARE DOCUMENT ---
Author Name rei minaya Address Unknown Organization [facility] Address [address] [place] [address] Phone [phone] Care Team Providers Care Pipe [employer]itter [employer] Name Role Phone Darian Blanton MD Unavailable GREG FLORES MD Unavailable [phone] INSURANCE PROVIDERS Payer name Policy type / Coverage type [employer] red republican [place] MED[place] (2) Medicaid [id number]
--- OUTSIDE RECORDS SUMMARY | 2024-06-03 11:42 | XMS_ITS | Clinical Summary ---
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 Gender Identity Not on file Sexual Orientation Not on file Plan of Treatment Health Maintenance Due Date Last Done Comments Hepatitis C Virus (HCV) Screening 1955 TdaP Immunization 1955 Colonoscopy 2001 Colorectal Cancer Screening 2001 Cologuard 2006 Immunochemical Fecal Occult Blood 2006 Zoster Immunization (1 of 2) 2006 PSA Discussion 11/25/2011 Pneumococcal Immunization (50+ years) (2 of 2 - PCV) 01/04/2021 01/05/2020 Influenza Immunization (#1) 2024 01/22/2023 SARS-COV-2 Immunization ( season) 2024 01/22/2023, 09/15/2021, 01/09/2021, Additional history exists Respiratory Syncytial Virus (RSV) Immunization (Adult) (1 - 1-dose 75+ series) 11/25/2031 Hepatitis B Immunization Aged Out No longer eligible based on patient's age to complete this topic Meningococcal Immunization (ACWY) Aged Out No longer eligible based on patient's age to complete this topic Rotavirus Immunization Aged Out No lo nger eligible based on patient's age to complete this topic Insurance MEDICARE [place]ICAID [place] Care Teams Mill Washer Relationship Specialty Start Date End Date Giselle Beltre [place] [address] PCP - General Advanced Practice Nurse 07/01/23 Justino Pool MD [address] [place] [address] [phone] Oncology 07/01/23
--- OUTSIDE RECORDS SUMMARY | 2024-06-03 11:42 | XMS_ITS | Clinical Summary ---
Author Organization [facility] Address [address] [place] [address]. [place] [address] [place] [address] Care Team Providers Care Street And Building Decorator Name Role Phone Carlos Vale DO Primary Care Provider [phone] Allergies No known active allergies Medications triamcinolone (KENALOG) 0.5 % cream Apply topically 3 (three) times daily as needed (irritation). Active Elastic Bandages & Supports (MEDICAL COMPRESSION SOCKS) MiscIndications :Peripheral edema Please measure for size and dispense 2 pair of compression stockings 2 each 4 Active vitamin B-12 (CYANOCOBALAMIN ) (CYANOCOBALAMIN ) 1000 mcg tabletIndicatio ns:Iron deficiency anemia due to chronic blood loss,AVM (arteriovenous malformation) of small bowel, acquired,Vitami n B12 deficiency Take 1 tablet (1,000 mcg total) by mouth daily. 90 tablet 3 4 Active folic acid (FOLVITE) 1 MG tabletIndicatio ns:Anemia, unspecified type Take 1 tablet (1 mg total) by mouth daily. 90 tablet 3 4 Active potassium chloride CR (KLOR-CON M) 10 MEQ tabletIndicatio ns:High output heart failure (CMS/HCC HHS/HCC) Take 1 tablet (10 mEq total) by mouth 2 (two) times daily. 180 tablet 3 4 Active Additional Information Patient not taking.Reported on 03/20/2024 OXYGENIndicatio ns:Chronic respiratory failure with hypoxia (CMS/HCC HHS/HCC) 2 L/min by Nasal route continuous. 1 Device 4 Active furosemide (LASIX) 20 MG tabletIndicatio ns:High output heart failure (CMS/[facility] HHS/HCC) Take 1 tablet (20 mg total) by mouth daily. 90 tablet 1 5 Active furosemide (LASIX) 20 MG tabletIndicatio ns:High output heart failure (CMS/HCC HHS/HCC) Take 1 tablet (20 mg total) by mouth daily. 90 tablet 1 4 025 Discontin ued(Reord er) Active Problems Problem Noted Date Diagnosed Date Pulmonary hypertension ([facility] HHS/HCC) 024 Right inguinal hernia 12/30/2023 Transfusion of blood product declined due to yarsanism reason 12/30/2023 Cigarette nicotine dependence in remission 11/10 Chronic respiratory failure with hypoxia (CMS/ [facility]) 11/11/2023 Vitamin B12 deficiency 11/11/2023 AVM (arteriovenous malformation) of small bowel, acquired 10/19/2023 High output heart failure ([facility] HHS/[facility]) 08/31 Iron deficiency anemia due to chronic blood loss 06/11/2023 Overview (11/11/2023): Last Assessment & Plan: Presented with microcytic anemia with hemoglobin 4.6, MCV 60, iron studies consistent with iron deficiency. Unclear etiology, concern for chronic blood loss anemia although he denies any signs or symptoms of bleeding. Last colonoscopy 2018 reportedly with edematous polyp, repeat recommended 3-5 years. Fecal occult test negative at OSH as per notes. Anemia most likely chronic due to pt being HDS for such a low Hgb, and that he's been anemic long enough for his MCV to drop. Previous hospitalist discussed GOC with the pt and family, pt is AOx4 and he wants to be full code. They also discussed with pt and family about hgb level that can be life threatening without blood transfusion, they acknowledge understanding and they agree with the plan above. Patient is Mu-ism and declines blood transfusion. Care team gave IV ferric gluconate 250 iv once and darbepoetin 40 mcg on 06/12. - Gave 1g iron dextran and Aranesp 300 mcg on 06/13 and 06/20 - Hematology consulted; started supplements / IV replacement as above - Cont folate and B12 supplements as per protocol - Minimize blood draws - H.pylori stool antigen positive--> started quad therapy (06/14), plan for 14 days treatment - Hgb improving as of 06/17 - GI re-engaged 06/21: given improvement in counts, plan for EGD and colonoscopy 06/23. - continue rest of age appropriate cancer screenings outpatient - f/u with Hematology outpatient - Hgb improved and plan for EGD colonoscopy on 06/23 Type 2 diabetes mellitus wit hout complication, without long-term current use of insulin ([facility]) 09/16/2020 Cataract of left eye, unspecified cataract type 06/27/2018 Secondary hypertension 06/08/2018 Resolved Problems Problem Noted Date Diagnosed Date Resolved Date Lower extremity edema 06/12/20232023 Overview (06/25/2023): Last Assessment & Plan: Worsening chronic LLE, SOB on presentation. PE on admission bl basilar crackles, LLE and distended abdomen. Work up: CXR with concern for pulm edema/ aspiration pneumonia, elevated NT pro BNP . Abdominal US with trace ascites, cholelithiasis without cholecystitis. S/p amp-sulbactam x3 days for possible aspiraiton pneumonia. MECHANIC RECOVERY no risk for aspiration, regular diet. TSH 2.33.TTE (06/15): LVEF 59%, ALAN, mild global RV hypokinesis, estimated PASP 61, normal diastolic function. Overall picture is suggestive of high output heart failure given severe anemia, normal LVEF and diastolic function, elevated PASP. Initially on Lasix 20 mg iv daily, increased to 20 mg BID IV with improvement in significant improvement of edema. TTE (06/15). Cardiology consulted, agree w/ IV diuresis and treating underlying cause (severe anemia), does not need GDMT or cardiology f/u on this time. - plan to start PO furosemide - continue periodic monitoring of electrolytes and renal function - home O2 eval (06/21): 2L at rest and w exertion; repeat within 48h of discharge - Monitor I/O, daily weights - dicussed with pt and family current limitations to treat his HF as high dose of iv diuretics needs frequent labs monitoring to monitor side effects and also that can make him to be HD unstable in the setting of anemia Microcytic anemia 06/11/2023 11/11/2023 Overview (06/25/2023): Last Assessment & Plan: Presented with microcytic anemia with hemoglobin 4.6, MCV 60, iron studies consistent with iron deficiency. Unclear etiology, concern for chronic blood loss anemia although he denies any signs or symptoms of bleeding. Last colonoscopy 2018 reportedly with edematous polyp, repeat recommended 3-5 years. Fecal occult test negative at OSH as per notes. Anemia most likely chronic due to pt being HDS for such a low Hgb, and that he's been anemic long enough for his MCV to drop. Previous hospitalist discussed GOC with the pt and family, pt is AOx4 and he wants to be full code. They also discussed with pt and family about hgb level that can be life threatening without blood transfusion, they acknowledge understanding and they agree with the plan above. Patient is Mu-ism and declines blood transfusion. Care team gave IV ferric gluconate 250 iv once and darbepoetin 40 mcg on 06/12. - Gave 1g iron dextran and Aranesp 300 mcg on 06/13 and 06/20 - Hematology consulted; started supplements / IV replacement as above - Cont folate and B12 supplements as per protocol - Minimize blood draws - H.pylori stool antigen positive--> started quad therapy (06/14), plan for 14 days treatment - Hgb improving as of 06/17 - GI re-engaged 06/21: given improvement in counts, plan for EGD and colonoscopy 06/23. - continue rest of age appropriate cancer screenings outpatient - f/u with Hematology outpatient - Hgb improved and plan for EGD colonoscopy on 06/23 Encounter for screening for malignant neoplasm of colon 11/18/2022 11/11/2023 Overview (06/25/2023): Last Assessment & Plan: Condition: stable Follow up in: three months with PCP Kit will be send to the member residence Hypertension associated with diabetes ([facility]) 11/18/2022 11/11/2023 Overview (06/25/2023): Last Assessment & Plan: Condition: stable Discussed glucose control targets. Educated on: Lifestyle changes, Nutrition, Foot care and Medication compliance Kumar educated on behavior modifications to include DASH diet, increasing their intake of vegetables, water and whole foods as well as increasing their level of exercise weekly to 3- 4 times after medical clearance from your PCP. Discussed with him the need to reduce their intake of foods high in salt, sugar, fat and preservatives. Kumar encouraged to stay compliant with medication regimen and behavior modification recommendations in order to achieve a healthier lifestyle and reduce their risks. Kumar verbalized understanding. Member advised to keep all scheduled appointments. Advised to continue taking all medications as prescribed and to keep all medical appointments. Continue to follow up for an annual wellness exam.Patient verbalized understanding. Discussed target blood pressure. Continue medication as prescribed from PCP/specialist. Take medications at the same time every day. Lifestyle modification advised: DASH diet, reduce stress/anxiety, discussed health weight management, activity as tolerated or advised from PCP, try to avoid alcohol and nicotine.Patient encouraged to keep all appointments and report any new or worsening symptoms to PCP.Member verbalized understanding. Follow up in: three months with PCP, Destaticizer Feeder, Instrument Sterilizer, Senior Investment Analyst and Established eye health careers instructor Eustachian tube dysfunction, bilateral 05/15/2022 11/11/2023 Type 2 diabetes mellitus wit hout complication, without long-term current use of insulin ([facility]) 09/16/2020 11/11/2023 Overview (06/25/2023): Last Assessment & Plan: -Hold home meds (metformin, Jardiance), Hgb A1C 5.4% monitor glucose- normal Limit glc checks Closed fracture of one rib o f left side with routine healing, subsequent encounter 05/15/2019 Epistaxis 08/29/2018 11/11/2023 Overview (08/29/2018): stable pressure device in place make appointment with ENT: number provided device needs to be in place for 5-7 days: on day 3 ER for return of bleeding Essential hypertension 06/08/2018 07/11 /2024 Overview (06/25/2023): Last Assessment & Plan: -Holding amlodipine, lisinopril -Monitor BP Encounters Date Type Department Care Team Description 05/24/2024 Telephone [facility] [address] [place] [address] Carlos Vale, DO Appointment Reminder 05/18/2024 Telephone [facility] [address] [place] [address] Carlos Vale, DO Follow Up Call 05/11/2024 Telephone [facility], [address] [address] Sterling Trujillo MD Refill Request (FUROSEMIDE) 03/20/2024 11:15 AM FINANCIAL DEVELOPER Office Visit [facility] [address] [place] [address] Sterling Trujillo MD CHF (CONSULT/) 03/20/2024 Travel from Last 3 Months Immunizations Name Administration Dates Next Due Pneumococcal (Pneumovax 23) 01/05/2020 Family History Medical History Relation Comments Alcohol Abuse Father Hypertension Father Arthritis Mother Relation Status Comments Father Mother Social History Tobacco Use Types Packs/Day Years Used Date Smoking Tobacco: Former Cigarettes 0.5 40 1 - 01/31/2018 Passive Smoke Exposure: Never Smokeless Tobacco: Never Tobacco Cessation:Counseling Given: Not Answered Alcohol Use Standard Drinks/Week Comments No 0 (1 standard drink = 0.6 oz pur e alcohol) AUDIT-C Answer Date Recorded Frequency of Alcohol Consumption Never 06/08/2018 Average Number of Drinks Not on file 019 Frequency of Binge Drinking Not on file 10/2018 PHQ-2 Answer Date Recorded Patient Health Questionnaire-2 Score 0 11/11/2023 Sex and Gender Information Value Date Recorded Sex Assigned at Not on file Legal Sex Male 2:25 PM FINANCIAL DEVELOPER Gender Identity Not on file Sexual Orientation Not on file Last Filed Vital Signs Vital Sign Reading Time Taken Comments Blood Pressure 118/60 03/20/2024 11:19 AM FINANCIAL DEVELOPER Pulse 69 03/20/2024 11:19 AM FINANCIAL DEVELOPER Temperature 36.6 ??C (97.9 ??F) 11/11/2023 8:36 AM CD T Respiratory Rate 22 09/06/2023 10:49 AM CDT Oxygen Saturation 94% 03/20/2024 11:19 AM FINANCIAL DEVELOPER 2L O2 Inhaled Oxygen Concentration - - Weight 82.6 kg (182 lb) 03/20/2024 11:19 AM FINANCIAL DEVELOPER Height 167.6 cm (5' 6 ) 03/20/2024 11:19 AM FINANCIAL DEVELOPER Body Mass Index 29.38 03/20/2024 11:19 AM FINANCIAL DEVELOPER Plan of Treatment Health Maintenance Due Date Last Done Comments DTaP, Tdap and Td Vaccines (1 - Tdap) 11/25/1975 Lung Cancer Screening 2006 Zoster Vaccines (1 of 2) 2006 RSV Immunization or 60+ Years (1 - Risk 60-74 years 1-dose series) 2016 Lipid Panel 05/15/2020 05/15/2019, 06/09/2018 Pneumococcal Vaccine: 65+ Years (2 of 2 - PCV) 01/04/2021 01/05/2020 AAA SCREENING 2021 Annual Medicare Wellness Visit 2021 COVID-19 Vaccine ( season) 2024 01/22/2023, 09/15/2021, 01/09/2021, Additional history exists Influenza Adult (#1) 2024 PHQ-2 (Physician [place]) 05/03/2024 11/11/2023 Hemoglobin A1C 05/13/2024 11/11/2023, 02/0 01/2024, 06/11/2023, Additional history exists Kidney Health Evaluation 11/10/2024 11/11/2023 PHQ-2 (Physician [place]) 11/10/2024 11/11/2023 Diabetes: Retinopathy Eye Exam 11/18/2024 11/18/2022, 05/13/2021 Colorectal Cancer Screening Colonoscopy (10 Years) 06/30/2033 07/01/2023, 07/01/2023, 08/18/2018 Hepatitis C Completed 06/09/2018 Meningococcal B Vaccine Aged Out No l onger eligible based on patient's age to complete this topic Meningococcal Vaccine Aged Out No tequila tan eligible based on patient's age to complete this topic RSV Immunizations Under 20 Months Aged Out No longer eligible based on patient's age to complete this topic Medical Devices Implanted Type Area Qa Software Test Engineer Device Identifier Shelf Expiration Date Model / Serial / Lot Resolution 360 Clip Implanted:Qty: 1 on 08/18/2018 by Travis Carpenter MD at [facility] TISSUELAB NATHANIEL [id number] 03/16/2021 / / [id number] Procedures Procedure Name Priority Date/Time Associated Diagnosis Comments HEMOGLOBIN, GLYCOSYLATED Routine 11/11/2023 Type 2 diabetes mellitus with diabetic microalbuminuria, without long-term current use of insulin ([facility]) COLONOSCOPY GENERIC (SCAN ORDER) 07/01/2023 DIABETIC RETINOPATHY EXAM (NEGATIVE)(SCAN ORDER) Routine 11/18/2022 LIPID PANEL Routine 05/15/2019 Healthcare maintenance HEPATITIS C ANTIBODY Routine 06/09/2018 9:27 AM FINANCIAL DEVELOPER Need for hepatitis C screening test from Last 3 Months or Most Recently Relevant to Health Maintenance Results * HEMOGLOBIN, GLYCOSYLATED (11/11/2023) HGB A1C 6.0 % [facility] 11/11/2023 Carlos Vale DO LABORATORY Final Resul t [facility] [address] [place] [address], [place] [phone] * COLONOSCOPY GENERIC (SCAN ORDER) (07/01/2023) 07/01/2023 [facility] Scanned SCANNING Final Resu lt * DIABETIC RETINOPATHY EXAM (NEGATIVE) (11/18/2022) [facility] Scanned SCANNING Final Resu lt Performing Organization Address [facility] Co de Phone Number [facility] * LIPID PANEL (05/15/2019) 05/15/2019 Barb Eid LABORER DEMOLITION LABORATORY Edited Result - Final Performing Organization Address [facility] Co de Phone Number [facility] [address] [place] [address], [place] [phone] * HEPATITIS C ANTIBODY (06/09/2018 9:27 AM FINANCIAL DEVELOPER) HEPATITIS C AB NON-REACTI VE NON-REACTI VE 06/09/2018 10:13 PM FINANCIAL DEVELOPER [facility] 06/09/2018 9:27 AM FINANCIAL DEVELOPER Barb Eid LABORER DEMOLITION LABORATORY Final Result Performing Organization Address [facility] de Phone Number [facility] [address] [place] [address], [place] [phone] from Last 3 Months or Most Recently Relevant to Health Maintenance Insurance COLÓN Advance Directives * Full Code (Latest Code Status on File) Date Activated Date Inactivated Comments 06/11/2023 3:57 PM 06/11/2023 11:[address] And Building Decorator Relationship Specialty Start Date End Date Carlos Vale DO [address] [place] [address] PCP - General FAMILY PRACTICE 10/01/23
--- OUTSIDE RECORDS SUMMARY | 2024-06-03 11:42 | XMS_ITS | Clinical Summary ---
Author Organization [facility] Address [address] [place] [address] Care Team Providers Care Headwaiter/Headwaitress Name Role Phone Carlos Vale Primary Care Provider Source Comments [facility],non-owned Affiliates and Associated Physician Practices is amultiple site organization consisting of ambulatory clinics and hospital sitesin [place], [place]. This disclosure is being madepursuant to the Care Everywhere program and may not contain all information available regarding this patient. Last updated 18.[facility] Allergies No known active allergies Medications * Be aware that medications may not be up to date on this document. Alwaysverify current medications with the patient. Medication Sig Dispensed Refills Start Date End Date Status cyanocobalamin (Vitamin B-12) 1000 MCG tablet Take 1 (one) tablet by mouth once daily 11/11/2023 Active folic acid (Folvite) 1 MG tablet Take 1 (one) tablet by mouth once daily 11/17/2023 Active furosemide (Lasix) 20 MG tablet Take 1 (one) tablet by mouth once daily 06/23/2023 Active loperamide (Imodium) 2 MG capsule Take 1 (one) capsule by mouth 3 times daily as needed 09/16/2023 Active pantoprazole EC (Protonix) 40 MG tablet Take 1 (one) tablet by mouth 09/16/2023 Active potassium chloride ER (Klor-Con M) 10 MEQ tablet Take 1 (one) tablet by mouth 2 times daily 07/27/2023 Active irbesartan (Avapro) 150 MG tablet Take 1 (one) tablet by mouth once daily 11/18/2023 Active Active Problems Problem Noted Date Diagnosed Date Right inguinal hernia 12/30/2023 Absolute anemia 12/30/2023 Heart failure 12/30/2023 Refusal of blood transfusion s as patient is Christian 12/30/2023 Social History Tobacco Use Types Packs/Day Years Used Date Smoking Tobacco: Former Cigarettes Smokeless Tobacco: Former Tobacco Cessation:Counseling Given: Not Answered Alcohol Use Standard Drinks/Week Comments Not Currently 0 (1 standard drink = 0.6 oz pur e alcohol) Sex and Gender Information Value Date Recorded Sex Assigned at Not on file Gender Identity Not on file Sexual Orientation Not on file Last Filed Vital Signs Vital Sign Reading Time Taken Comments Blood Pressure 113/74 12/30/2023 9:20 AM CDT Pulse 85 12/30/2023 9:20 AM CDT Temperature 36.7 ??C (98.1 ??F) 12/30/2023 9:20 AM CD T Respiratory Rate 17 12/02/2023 8:55 AM CDT Oxygen Saturation 91% 12/30/2023 9:20 AM CDT Inhaled Oxygen Concentration - - Weight 79.4 kg (175 lb) 12/30/2023 9:20 AM CDT Height 167.6 cm (5' 6 ) 12/30/2023 9:20 AM CDT Body Mass Index 28.25 12/30/2023 9:20 AM CDT Plan of Treatment Health Maintenance Due Date Last Done Comments COLOGUARD (AGES 45-75) - COL ON CA SCREENING [address] COLONOGRAPHY - COLON CA SCREENING 1955 FIT - COLON CA SCREENING 1955 FLEX SIG - COLON CA SCREENING 1956 LIPID TESTING 1956 HEPATITIS C SCREENING 11/20/1974 DTAP/TDAP/TD VACCINES (1 - Tdap) 11/25/1975 PNEUMOCOCCAL VACCINE 50+ (1 of 1 - PCV) 2006 ZOSTER VACCINE (1 of 2) 2006 AAA SCREENING 2021 SCREENING FOR DIABETES 12/02/2023 COVID-19 VACCINE (4 - 2023-2 5 season) 2024 09/15/2021, 01/09/2021, 12/19/2020 INFLUENZA VACCINE (#1) 2024 DEPRESSION SCREENING 05/03/2024 Respiratory Syncytial Virus (RSV) Vaccine Pt: or over 60 yrs (1 - 1-dose 75+ series) 11/25/2031 COLONOSCOPY - COLON CA SCREENING 06/30/2033 07/01/2023 Colorectal Cancer Screening 06/30/2033 HEPATITIS B VACCINE Aged Out No longe r eligible based on patient's age to complete this topic HIB VACCINE Aged Out No longer eligi ble based on patient's age to complete this topic HPV VACCINE Aged Out No longer eligi ble based on patient's age to complete this topic MENINGOCOCCAL (Group B) VACCINE Aged Out No longer eligible b ased on patient's age to complete this topic MENINGOCOCCAL VACCINE Aged Out No tequila tan eligible based on patient's age to complete this topic Care Teams Headwaiter/Headwaitress Relationship Specialty Start Date End Date Carlos Vale DO [address] [id number] PCP - General Family Medicine 12/02/23
--- OUTSIDE RECORDS SUMMARY | 2024-06-03 11:42 | XMS_ITS | Patient Health Summary ---
Author Organization [facility] Address [address] [place] [address] Care Team Providers Care Engagement Liaison Name Role Phone AkankshaCarlos stanley Primary Care Provider Note from [facility],non-owned Affiliates and Associated Physician Practices is amultiple site organization consisting of ambulatory clinics and hospital sitesin [place], [place], [place] and [place]. This disclosure is being madepursuant to the Care Everywhere program and may not contain all information available regarding this patient. Last updated 18.[facility] Allergies No known active allergies Medications * Be aware that medications may not be up to date on this document. Alwaysverify current medications with the patient. * cyanocobalamin (Vitamin B-12) 1000 MCG tablet(Started 11/11/2023) Take 1 (one) tablet by mouth once daily * folic acid (Folvite) 1 MG tablet(Started 11/17/2023) Take 1 (one) tablet by mouth once daily * furosemide (Lasix) 20 MG tablet(Started 06/23/2023) Take 1 (one) tablet by mouth once daily * loperamide (Imodium) 2 MG capsule(Started 09/16/2023) Take 1 (one) capsule by mouth 3 times daily as needed * pantoprazole EC (Protonix) 40 MG tablet(Started 09/16/2023) Take 1 (one) tablet by mouth * potassium chloride ER (Klor-Con M) 10 MEQ tablet(Started 07/27/2023) Take 1 (one) tablet by mouth 2 times daily * irbesartan (Avapro) 150 MG tablet(Started 11/18/2023) Take 1 (one) tablet by mouth once daily Active Problems Problem Noted Date Diagnosed Date Right inguinal hernia 12/30/2023 Absolute anemia 12/30/2023 Heart failure 12/30/2023 Refusal of blood transfusion s as patient is Lutheran 12/30/2023 Social History Tobacco Use Types Packs/Day [...] Mass Index 28.25 12/30/2023 9:20 AM CDT Procedures * US EXTREMITY RIGHT LTD NONVASC(Performed 12/20/2023) Performed for Inguinal hernia without obstruction or gangrene, recurrence not specified, unspecified laterality Results * US Extremity Right Ltd Nonvasc (12/20/2023 1:16 PM CDT) Anatomical Region Laterality Modality Upper Extremity, Lower Extremity Ultrasound 12/20/2023 4:23 PM CDT Impressions 12/20/2023 4:24 PM CDT IMPRESSION: Right inguinal hernia containing fluid and bowel. > Interpreting Provider: Tsering Ruiz MD on 12/20/2023 4:24 PM Narrative 12/20/2023 4:24 PM CDT PROCEDURE: ??US PELVIS LIMITED DATE/TIME OF EXAM: ??12/20/2023 1:16 PM CLINICAL INFORMATION: None relevant/not provided if blank. Indication: K40.90: Unilateral inguinal hernia, without obstruction or gangrene, not specified as recurrent Additional History: COMPARISON: None. TECHNIQUE: Ultrasound of the pelvis was performed utilizing standard protocol. FINDINGS: Sonographic evaluation of the area of concern in the right inguinal region demonstrates a hernia containing collapsed bowel and fluid. With Valsalva, more bowel protrudes into the hernia. Procedure Note Tsering Ruiz MD - 12/28/2023 PROCEDURE: US PELVIS LIMITED DATE/TIME OF EXAM: 12/20/2023 1:16 PM CLINICAL INFORMATION: None relevant/not provided if blank. Indication: K40.90: Unilateral inguinal hernia, without obstruction or gangrene, not specified as recurrent Additional History: COMPARISON: None. TECHNIQUE: Ultrasound of the pelvis was performed utilizing standard protocol. FINDINGS: Sonographic evaluation of the area of concern in the right inguinalregion demonstrates a hernia containing collapsed bowel and fluid. WithValsalva, more bowel protrudes into the hernia. IMPRESSION: Right inguinal hernia containing fluid and bowel. > Interpreting Provider: Tsering Ruiz MD on 12/20/2023 4:24 PM Erica Moya MD US ORDERABLES Care Teams Engagement Liaison Relationship Specialty Start Date End Date Carlos Vale, [address] [facility] [place] [address] [phone] PCP - General Family Medicine 12/02/23
--- OUTSIDE RECORDS SUMMARY | 2024-06-03 11:42 | XMS_ITS | Referral Summary ---
Author Organization [facility] Address [address] [place] [address] Care Team Providers Care Molding Sander Name Role Phone Carlos Vale Primary Care Provider Source Comments [facility],non-owned Affiliates and Associated Physician Practices is amultiple site organization consisting of ambulatory clinics and hospital sitesin [place], [place], [place] and [place]. This disclosure is being madepursuant to the Care Everywhere program and may not contain all information available regarding this patient. Last updated 18.[facility] Allergies No known active allergies Medications * [...] of blood transfusion s as patient is Mandaeism 12/30/2023 Social History Tobacco Use Types Packs/Day [...] 12/30/2023 9:20 AM CDT Plan of Treatment Not on file Care Teams Molding Sander Relationship Specialty Start Date End Date Carlos Vale DO [address] [phone] PCP - General Family Medicine 12/02/23
[2024-06-03 12:15] VITALS: BP 116/68; PULSE 98; RESP 16; TEMP 36.4; O2SAT 96
[2024-06-03 13:35] VITALS: BP 115/73; PULSE 92; RESP 20; TEMP 36.4; O2SAT 94
--- OUTSIDE RECORDS SUMMARY | 2024-06-03 14:23 | XMS_ITS | CONTINUITY OF CARE DOCUMENT ---
Author Name rei minaya Address Unknown Organization [facility] Address [address] [place] [address] Phone [phone] Care Team Providers Care Pulley Man Name Role Phone Darian Blanton MD Unavailable GREG FLORES MD Unavailable [phone] INSURANCE PROVIDERS Payer name Policy type / Coverage type [place] [employer] [place] (2) Medicaid [id number]
--- OUTSIDE RECORDS SUMMARY | 2024-06-03 14:23 | XMS_ITS | Clinical Summary ---
Author Organization [facility] Address [address] [place] [address] Care Team Providers Care Negotiations Director Name Role Phone Carlos Vale Primary Care Provider [phone] Source Comments [facility],non-owned Affiliates and Associated Physician Practices is amultiple site organization consisting of ambulatory clinics and hospital sitesin [place] and [place]. This disclosure is being madepursuant to the Care Everywhere program and may not contain all information available regarding this patient. Last updated 18.[facility] Allergies No known active allergies Medications * [...] of blood transfusion s as patient is Evangelical 12/30/2023 Social History Tobacco Use Types Packs/Day [...] age to complete this topic Care Teams Negotiations Director Relationship Specialty Start Date End Date Carlos Vale DO [address] [phone] PCP - General Family Medicine 12/02/23
--- OUTSIDE RECORDS SUMMARY | 2024-06-03 14:23 | XMS_ITS | Referral Summary ---
Author Organization [facility] Address [address] [place] [address] Care Team Providers Care Cokeman Name Role Phone Carlos Vale Primary Care Provider Source Comments [facility],non-owned Affiliates and Associated Physician Practices is amultiple site organization consisting of ambulatory clinics and hospital sitesin [place], [place], [place] and [place]. This disclosure is being madepursuant to the Care Everywhere program and may not contain all information available regarding this patient. Last updated 18.[facility] Allergies No known active allergies Medications * [...] of blood transfusion s as patient is Jew 12/30/2023 Social History Tobacco Use Types Packs/Day [...] of Treatment Not on file Care Teams Cokeman Relationship Specialty Start Date End Date Carlos Vale DO [address] [phone] PCP - General Family Medicine 12/02/23
--- OUTSIDE RECORDS SUMMARY | 2024-06-03 14:23 | XMS_ITS | Clinical Summary ---
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 Name Role Phone Barb Eid NP Primary Care Provider [phone] Allergies No known active allergies Medications furosemide (LASIX) 20 mg tablet Take 1 tablet (20 mg total) by mouth daily for 15 days 15 tablet 4 Active potassium chloride ER 10 mEq CR tablet Take 1 tablet/capsule (10 mEq total) by mouth 2 (two) times a day 4 Active loperamide (IMODIUM) 2 mg capsuleIndicati ons:diarrhea Take 1 capsule (2 mg total) by mouth 3 (three) times a day as needed for diarrhea 90 capsule [address] (PROTONIX) 40 mg EC tabletIndicatio ns:GI Bleed Take 1 tablet (40 mg total) by mouth 2 (two) times a day 180 tablet 4 Active furosemide (LASIX) 20 mg tablet Take 1 tablet (20 mg total) by mouth 2 (two) times a day 180 tablet 4 Active folic acid (FOLVITE) 1 mg tablet Take 1 tablet (1 mg total) by mouth daily 30 tablet 3 4 Active cyanocobalamin (Vitamin B-12) 1,000 mcg tabletIndicatio ns:Prevention of Vitamin B12 Deficiency Take 1 tablet (1,000 mcg total) by mouth daily 30 tablet 3 4 Active furosemide (LASIX) 20 mg tablet Take 1 tablet (20 mg total) by mouth 2 (two) times a day Active oxygen Administer 2 L/min into affected nostril(s) continuously as needed Active Active Problems Problem Noted Date Diagnosed Date Chronic respiratory failure with hypoxia (CMS/HC C) 01/25/2024 Blood transfusion declined b ecause patient is Protestant 01/21/2024 Pulmonary hypertension 01/21/2024 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 PE on admission bl basilar crackles, LLE and distended abdomen. Work up: CXR with concern for pulm edema/ aspiration pneumonia, elevated NT pro BNP . Abdominal US with trace ascites, cholelithiasis without cholecystitis. S/p amp-sulbactam x3 days for possible aspiraiton pneumonia. 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 TSH [...] HD unstable in the setting of anemia Iron deficiency anemia 06/11/2023 Assessment & Plan (06/22/2023 5:04 PM LEAD CONSULTANT): Presented with microcytic anemia with hemoglobin 4.6, [...] agree with the plan above. Patient is Zoroastrianism and declines blood transfusion. Care team gave [...] on 06/23 Type 2 diabetes mellitus wit h diabetic microalbuminuria, without long-term current use of insulin 09/16/2020 Assessment & Plan (06/13/2023 6:58 PM LEAD CONSULTANT): -Hold home meds (metformin, Jardiance), Hgb A1C 5.4% monitor glucose- normal Limit glc checks Essential hypertension 06/08/2018 Assessment & Plan (06/12/2023 4:51 AM LEAD CONSULTANT): -Holding amlodipine, lisinopril -Monitor BP Encounters Date Type Department Care Team Description 05/12/2024 8:00 AM LEAD CONSULTANT [facility]fusion [facility] [address] [facility] Floor 6 [place] [address] Microcytic anemia (Primary Dx); Iron deficiency anemia, unspecified iron deficiency anemia type; Arthritis 05/11/2024 10:30 AM LEAD CONSULTANT Lab [facility] Lab Collection [facility] [place] [address] Iron deficiency anemia, unspecified iron deficiency anemia type 05/11/2024 10:15 AM LEAD CONSULTANT Infusion [facility] [address] 6 [place] [address] GI AVM (gastrointestinal arteriovenous vascular malformation) (Primary Dx); Iron deficiency anemia, unspecified iron deficiency anemia type 05/11/2024 9:15 AM LEAD CONSULTANT Office Visit [facility] Hematology [address] [place] [address] Floor 6 [place] [address] Landy Lal MD Iron deficiency anemia, unspecified iron deficiency anemia type (Primary Dx) 05/11/2024 8:15 AM LEAD CONSULTANT Lab [facility] Oncology Lab [address] [place] [address] Floor 6 [place] [address] Iron deficiency anemia, unspecified iron deficiency anemia type 04/07/2024 11:30 AM LEAD CONSULTANT Infusion [facility] 6 [place] [address] Microcytic anemia (Primary Dx) 04/06/2024 10:30 AM LEAD CONSULTANT Infusion [facility] [address] [place] [address] Ave Floor 6 [place] [address] GI AVM (gastrointestinal arteriovenous vascular malformation) (Primary Dx); Iron deficiency anemia, unspecified iron deficiency anemia type 04/06/2024 9:30 AM LEAD CONSULTANT Lab [facility] [address] [place] [address] Ave Floor 6 [place] [address] Iron deficiency anemia, unspecified iron deficiency anemia type 04/06/2024 Orders Only [facility] Hematology [address] [place] [address] [address] 6 [place] [address] Margaux Emery 04/04/2024 Telephone [facility] Hematology [address] [place] [address] [address] 6 [place] [address] Margaux Emery 03/16/2024 3:00 PM LEAD CONSULTANT Infusion [facility] [address] [place] [address] Microcytic anemia (Primary Dx); Iron deficiency anemia, unspecified iron deficiency anemia type 03/16/2024 12:45 PM LEAD CONSULTANT Lab [facility] [address] [place] [address] Ave Floor 6 [place] [address] Iron deficiency anemia, unspecified iron deficiency anemia type 03/16/2024 Telephone [facility] Hematology [address] [place] [phone] Shilpa Shepherd 03/10/2024 Telephone [facility] Hematology [address] [place] [address] 6 [place] [address] Margaux Emery 03/10/2024 Orders Only [facility] Hematology [address] [place] [address] 6 [place] [phone] Margaux Emery Iron deficiency anemia, unspecified iron deficiency anemia type (Primary Dx) 03/09/2024 10:30 AM LEAD CONSULTANT Infusion [facility] Infusion [address] [place], [place] [address] [address] GI AVM (gastrointestinal arteriovenous vascular malformation) (Primary Dx); Iron deficiency anemia, unspecified iron deficiency anemia type 03/09/2024 9:30 AM LEAD CONSULTANT Lab [facility] [address] [place] [id number] Iron deficiency anemia, unspecified iron deficiency anemia type from Last 3 Months Immunizations Name Administration Dates Next Due Influenza, Quad, Adjuvantated, Intramuscular Pneumococcal Polysaccharide PPV23 01/05/2020 Surgical History Surgery Date Site/Laterality Comments ELBOW SURGERY Metal Medical History Medical History Date Comments Diabetes mellitus (HCC) Hypertension Family History Medical History Relation Name Comments No Known Problems Father No Known Problems Mother Relation Name Status Comments Father Mother Social History Tobacco Use Types Packs/Day Years Used Date Smoking Tobacco: Former Passive Smoke Exposure: Past Tobacco Cessation:Counseling Given: Not Answered [facility] Utilities Answer Date Recorded In the past 12 months has e my[employer]aa, gas, oil, or water [employer] threatened to shut off services in your home? No 09/17/2023 Social Connection and Isolat ion Panel [NHANES] Answer Date Recorded In a typical week, how many times do you talk on the phone with family, friends, or neighbors? More than three times a week 09/17/2023 How often do you get togethe r with friends or relatives? More than three times a week 09/17/2023 How often do you attend chur or islam services? More than 4 times per year 09/17/2023 Do you belong to any clubs o r organizations such as gnosticism groups, unions, fraternal or athletic groups, or school groups? No 09/17/2023 How often do you attend meet ings of the clubs or organizations you belong to? Never 09/17/2023 Are you , , di vorced, , never , or living with a partner? 09/17/2023 AUDIT-C Answer Date Recorded Q1: How often do you have a drink containing alcohol? Never 07/01/2023 Q2: How many drinks containi ng alcohol do you have on a typical day when you are drinking? Patient does not drink Q3: How often do you have si x or more drinks on one occasion? Never 07/01/2023 Overall Financial Resource Strain (CARDIA) Answe r Date Recorded How hard is it for you to pa y for the very basics like food, housing, medical care, and heating? Not very hard 09/17/2023 Hunger Vital Sign Answer Date Recorded Within the past 12 months, y ou worried that your food would run out before you got the money to buy more. Never true 09/17/19 24 Within the past 12 months, t he food you bought just didn't last and you didn't have money to get more. Never true 09/17/2023 PRAPARE - Transportation Answer Date Re corded In the past 12 months, has l ack of transportation kept you from medical appointments or from getting medications? No 08/31 In the past 12 months, has l ack of transportation kept you from meetings, work, or from getting things needed for daily living? No 09/17/2023 Housing Stability Vital Sign Answer Yannick e Recorded In the last 12 months, was t here a time when you were not able to pay the mortgage or rent on time? No 09/17/2023 In the last 12 months, how many places have you lived? 1 09/17/2023 In the last 12 months, was t here a time when you did not have a steady place to sleep or slept in a correction (including now)? No 09/17/2023 Personal Safety Answer Date Recorded Have you ever been in or are you currently in a harmful physical or emotional relationship or is someone making you feel afraid or unsafe? Denies 10/10/2023 Sex and Gender Information Value Date Recorded Sex Assigned at Not on file Legal Sex Male 2:26 AM CDT Gender Identity Not on file Sexual Orientation Not on file Obstetrics History Last Filed Vital Signs Vital Sign Reading Time Taken Comments Blood Pressure 114/77 05/12/2024 8:53 AM LEAD CONSULTANT Pulse 81 05/12/2024 8:53 AM LEAD CONSULTANT Temperature 36.5 ??C (97.7 ??F) 05/12/2024 8:53 AM CS T Respiratory Rate 18 05/12/2024 8:53 AM LEAD CONSULTANT Oxygen Saturation 96% 05/12/2024 8:53 AM LEAD CONSULTANT Inhaled Oxygen Concentration - - Weight 84 kg (185 lb 3 oz) 05/12/2024 8:53 AM CS T Height 167.6 cm (5' 6 ) 05/11/2024 10:30 AM LEAD CONSULTANT Body Mass Index 29.89 05/11/2024 10:30 AM LEAD CONSULTANT Plan of Treatment Health Maintenance Due Date Last Done Comments Albumin Creatinine Ratio, Urine 1955 Depression Screening 1955 Hepatitis C Screening 1955 Prostate Cancer Screening-PSA 1956 Dilated Eye Exam 1956 Foot Exam 1956 DTaP/Tdap/Td Vaccine (1 - Tdap) 11/25/1967 Hepatitis B Screening 1974 Zoster Vaccine (1 of 2) 2006 Lipid Panel 05/15/2020 05/15/2019 Pneumococcal vaccine 65+ (2 of 2 - PCV) 01/04/2021 01/05/2020 Abdominal Aortic Aneurysm (A AA) Screen 2021 Well Visit 65+ 2021 Hemoglobin A1C 12/11/2023 06/12/2023, 06/11/2023 Covid-19 Vaccine (5 - 2023-2 5 season) 2024 01/22/2023, 09/15/2021, 01/09/2021, Additional history exists Influenza Vaccine (#1) 2024 01/22/2023 Fall Risk Assessment 09/15/2024 09/16/2023 eGFR 10/09/2024 10/10/2023, 08/31, 09/09/2023, Additional history exists Colon Cancer Screening-Colonoscopy 06/30/20332023 Procedures Procedure Name Priority Date/Time Associated Diagnosis Comments DIFFERENTIAL AUTO Routine 05/11/2024 10: 13 AM LEAD CONSULTANT Iron deficiency anemia, unspecified iron deficiency anemia type IRON PROFILE W/ IBC Routine 05/11/2024 1 0:13 AM LEAD CONSULTANT Iron deficiency anemia, unspecified iron deficiency anemia type CBC WITH AUTO DIFFERENTIAL Routine 05/11/2024 10:13 AM LEAD CONSULTANT Iron deficiency anemia, unspecified iron deficiency anemia type FERRITIN Routine 05/11/2024 10:13 AM LEAD CONSULTANT Iron deficiency anemia, unspecified iron deficiency anemia type MANUAL DIFFERENTIAL Routine 04/06/2024 8 :55 AM LEAD CONSULTANT Iron deficiency anemia, unspecified iron deficiency anemia type CBC WITH AUTO DIFFERENTIAL Routine 04/06/2024 8:55 AM LEAD CONSULTANT Iron deficiency anemia, unspecified iron deficiency anemia type IRON PROFILE W/ IBC Routine 04/06/2024 8 :55 AM LEAD CONSULTANT Iron deficiency anemia, unspecified iron deficiency anemia type FERRITIN Routine 04/06/2024 8:55 AM LEAD CONSULTANT Iron deficiency anemia, unspecified iron deficiency anemia type DIFFERENTIAL AUTO Routine 03/16/2024 12: 03 PM LEAD CONSULTANT Iron deficiency anemia, unspecified iron deficiency anemia type CBC WITH AUTO DIFFERENTIAL Routine 03/16/2024 12:03 PM LEAD CONSULTANT Iron deficiency anemia, unspecified iron deficiency anemia type FERRITIN Routine 03/16/2024 12:03 PM LEAD CONSULTANT Iron deficiency anemia, unspecified iron deficiency anemia type IRON PROFILE W/ IBC Routine 03/16/2024 1 2:03 PM LEAD CONSULTANT Iron deficiency anemia, unspecified iron deficiency anemia type MANUAL DIFFERENTIAL Routine 03/09/2024 9 :34 AM LEAD CONSULTANT Iron deficiency anemia, unspecified iron deficiency anemia type CBC WITH AUTO DIFFERENTIAL Routine 03/09/2024 9:34 AM LEAD CONSULTANT Iron deficiency anemia, unspecified iron deficiency anemia type IRON PROFILE W/ IBC Routine 03/09/2024 9 :27 AM LEAD CONSULTANT Iron deficiency anemia, unspecified iron deficiency anemia type FERRITIN Routine 03/09/2024 9:27 AM LEAD CONSULTANT Iron deficiency anemia, unspecified iron deficiency anemia type EGFR STAT 10/10/2023 7:17 PM CDT COLONOSCOPY 07/01/2023 8:13 AM LEAD CONSULTANT HEMOGLOBIN A1C STAT 06/11/2023 9:37 PM LEAD CONSULTANT from Last 3 Months or Most Recently Relevant to Health Maintenance Results * (ABNORMAL) Differential, auto (05/11/2024 10:13 AM LEAD CONSULTANT) Neutrophil abs 9.4(H) 1.5 - 6.5 K/cumm Comment:Testing performed by : [facility], [address] [place] [phone] Lymphocyte abs 0.9 0.8 - 3.3 K/cumm [facility] Comment:Testing performed by : [facility], [address] [place] [phone] Monocyte abs 0.8 0.2 - 0.8 K/cumm [facility] Comment:Testing performed by : [facility], [address] [place] [phone] Eosinophil abs 0.1 0.0 - 0.5 K/cumm [facility] Comment:Testing performed by : [facility], [address] [place] [phone] Basophil abs 0.5(H) 0.0 - 0.1 K/cumm [facility] Comment:Testing performed by : [facility], [address] [place] [phone] Neutrophil pct 79.9 % [facility] Comment: Interpretive Data Percent cell count reference ranges are not reported, since discordance with absolute values may lead to misinterpretation of CBC data. Current Interpretive Data was last revised on 2017. Testing performed by: [facility], [address] [place] [phone] Lymphocyte pct 7.5 % [facility] Comment: Interpretive Data Percent cell count reference ranges are not reported, since discordance with absolute values may lead to misinterpretation of CBC data. Current Interpretive Data was last revised on 2017. Testing performed by: [facility], [address] [place] [phone] Monocyte pct 7.0 % [facility] Comment: Interpretive Data Percent cell count reference ranges are not reported, since discordance with absolute values may lead to misinterpretation of CBC data. Current Interpretive Data was last revised on 2017. Testing performed by: [facility], [address] [place] [phone] Eosinophil pct 1.0 % [facility] Comment: Interpretive Data Percent cell count reference ranges are not reported, since discordance with absolute values may lead to misinterpretation of CBC data. Current Interpretive Data was last revised on 2017. Testing performed by: [facility], [address] [place] [phone] Basophil pct 4.6 % [facility] Comment: Interpretive Data Percent cell count reference ranges are not reported, since discordance with absolute values may lead to misinterpretation of CBC data. Current Interpretive Data was last revised on 2017. Testing performed by: [facility], [address] [place] [phone] Blood 05/11/2024 10:1 3 AM LEAD CONSULTANT 05/11/2024 10:27 AM LEAD CONSULTANT us Landy Lal MD LAB BLOOD ORDERABLES Final R esult Performing Organization Address City/[facility]/ZIP Co de Phone Number [facility] [place] [address] * (ABNORMAL) Iron profile w/ IBC (05/11/2024 10:13 AM LEAD CONSULTANT) Pathologist [facility] Iron 8(L) 50 - 150 mcg/dL TIBC 381 250 - 400 mcg/dL [facility] Transferrin saturation 2(L) 20 - 50 % [facility] Blood 05/11/2024 10:1 3 AM LEAD CONSULTANT 05/11/2024 10:25 AM LEAD CONSULTANT us Landy Lal MD LAB BLOOD ORDERABLES Final R esult Performing Organization Address [facility] Co de Phone Number [facility] [place] [address] * (ABNORMAL) CBC with auto differential (05/11/2024 10:13 AM LEAD CONSULTANT) [facility] WBC 11.7(H) 3.8 - 9.9 K/cumm Comment:Testing performed by : [facility], [address] [place] [phone] Hgb 5.2(L) 13.0 - 17.5 g/dL [facility] Comment: Critical Result HGB:5.2 Called to and read back by: PENNY EMERY RN at: 05/11/2024 10:49:06 by:ELYSE SPENCE. Testing performed by: [facility], [address] [place] [phone] Hct 19.1(L) 38.9 - 50.3 % [facility] Comment:Testing performed by : [facility], [address] [place] [phone] Plt 215 150 - 400 K/cumm [facility] Comment:Testing performed by : [facility], [address] [place] [phone] MPV 8.6 6.8 - 10.4 fL [facility] Comment:Testing performed by : [facility], [address] [place], [place] [phone] RBC 2.72(L) 4.30 - 5.80 M/cumm [facility] Comment:Testing performed by : [facility], [address] [place], [place] [phone] MCV 70.2(L) 81.3 - 96.4 fL [facility] Comment:Testing performed by : [facility], [address] [place], [place] [phone] MCH 19.0(L) 27.1 - 33.3 pg [facility] Comment:Testing performed by : [facility], [address] [place], [place] [phone] MCHC 27.0(L) 32.3 - 35.7 g/dL [facility] Comment:Testing performed by : [facility], [address] [place], [place] [phone] RDW CV 32.1(H) 11.1 - 14.9 % [facility] Comment:Testing performed by : [facility], [address] [place], [place] [phone] NRBC abs 0.50(H) 0.00 - 0.01 K/cumm [facility] Comment:Testing performed by : [facility], [address] [place] [address] Blood 05/11/2024 10:1 3 AM LEAD CONSULTANT 05/11/2024 10:27 AM LEAD CONSULTANT us Landy Lal MD LAB BLOOD ORDERABLES Final R esult [facility] [place] [address] * (ABNORMAL) Ferritin (05/11/2024 10:13 AM LEAD CONSULTANT) Ferritin 23(L) 30 - 400 ng/mL Blood 05/11/2024 10:1 3 AM LEAD CONSULTANT 05/11/2024 10:25 AM LEAD CONSULTANT us Landy Lal MD LAB BLOOD ORDERABLES Final R esult Performing Organization Address [facility] Co de Phone Number [facility] [place] [address] * (ABNORMAL) Iron profile w/ IBC (04/06/2024 8:55 AM LEAD CONSULTANT) Iron 12(L) 50 - 150 mcg/dL TIBC 350 250 - 400 mcg/dL [facility] Transferrin saturation 3(L) 20 - 50 % [facility] Blood 04/06/2024 8:55 AM LEAD CONSULTANT 04/06/2024 9:31 AM LEAD CONSULTANT us Landy Lal MD LAB BLOOD ORDERABLES Final R esult Performing Organization Address [facility] de Phone Number [facility] [place] [address] * (ABNORMAL) CBC with auto differential (04/06/2024 8:55 AM LEAD CONSULTANT) Pathologist [facility] WBC 17.6(H) 3.8 - 9.9 K/cumm Comment:Testing performed by : [facility], [address] [place] [phone] Hgb 6.3(L) 13.0 - 17.5 g/dL [facility] Comment: Results Consistent with Previous Results Testing performed by: [facility], [address] [place] [phone] Hct 24.5(L) 38.9 - 50.3 % [facility] Comment:Testing performed by : [facility], [address] [place] [phone] Plt 808(H) 150 - 400 K/cumm [facility] Comment:Testing performed by : [facility], [address] [place] [address] MPV 7.3 6.8 - 10.4 fL [facility] Comment:Testing performed by : [facility], [address] [place] [address] RBC 3.09(L) 4.30 - 5.80 M/cumm [facility] Comment:Testing performed by : [facility], [address] [place], [place] [phone] MCV 79.3(L) 81.3 - 96.4 fL [facility] Comment:Testing performed by : [facility], [address] [place], [place] [phone] MCH 20.3(L) 27.1 - 33.3 pg [facility] Comment: Results Consistent with Previous Results Testing performed by: [facility], [address] [place] [address] MCHC 25.7(L) 32.3 - 35.7 g/dL [facility] Comment: Results Consistent with Previous Results Testing performed by: [facility], [address] [place] [address] RDW CV 32.0(H) 11.1 - 14.9 % [facility] Comment:Testing performed by : [facility], [address] [place] [address] NRBC abs 0.60(H) 0.00 - 0.01 K/cumm [facility] Comment:Testing performed by : [facility], [address] [place] [address] Blood 04/06/2024 8:55 AM LEAD CONSULTANT 04/06/2024 9:26 AM LEAD CONSULTANT us Landy Lal MD LAB BLOOD ORDERABLES Final R esult [facility] [place] [address] * (ABNORMAL) Manual Differential (04/06/2024 8:55 AM LEAD CONSULTANT) Cells Counted 194 Comment:Testing performed by : [facility], [address] [place] [phone] Neutrophil abs 13.9(H) 1.5 - 6.5 K/cumm [facility] Comment:Testing performed by : [facility], [address] [place] [phone] Lymphocyte abs 1.9 0.8 - 3.3 K/cumm [facility] Comment:Testing performed by : [facility], [address] [place], [place] [phone] Monocyte abs 1.1(H) 0.2 - 0.8 K/cumm [facility] Comment:Testing performed by : [facility], [address] [place], [place] [id number] Eosinophil abs 0.0 0.0 - 0.5 K/cumm [facility] Comment:Testing performed by : [facility], [address] [place] [phone] Basophil abs 0.4(H) 0.0 - 0.1 K/cumm [facility] Comment:Testing performed by : [facility], [address] [place] [phone] Neutrophil pct 79.0 % [facility] Comment: Interpretive Data Percent cell count reference ranges are not reported, since discordance with absolute values may lead to misinterpretation of CBC data. Current Interpretive Data was last revised on 2017. Testing performed by: [facility], [address] [place] [phone] Lymphocyte pct 11.0 % [facility] Comment: Interpretive Data Percent cell count reference ranges are not reported, since discordance with absolute values may lead to misinterpretation of CBC data. Current Interpretive Data was last revised on 2017. Testing performed by: [facility], [address] [place] [phone] Monocyte pct 6.0 % [facility] Comment: Interpretive Data Percent cell count reference ranges are not reported, since discordance with absolute values may lead to misinterpretation of CBC data. Current Interpretive Data was last revised on 2017. Testing performed by: [facility], [address] [place] [phone] Eosinophil pct 0.0 % C[facility]ER [facility] Comment: Interpretive Data Percent cell count reference ranges are not reported, since discordance with absolute values may lead to misinterpretation of CBC data. Current Interpretive Data was last revised on 2017. Testing performed by: [facility], [address] [place], [place] [phone] Basophil pct 2.0 % C[facility]ER [facility] Comment: Interpretive Data Percent cell count reference ranges are not reported, since discordance with absolute values may lead to misinterpretation of CBC data. Current Interpretive Data was last revised on 2017. Testing performed by: [facility], [address] [place], [place] [phone] Myelocyte pct 1.0 % CERNER [facility]J Comment:Testing performed by : [facility], [address] [place], [place] [phone] Variant lymph pct 2.0 % CERNER [facility]J Comment:Testing performed by : [facility], [address] [place], [place] [phone] Smudge cells, qual Present(A ) C[facility]ER [facility]J Comment:Testing performed by : [facility], [address] [place], [place] [phone] RBC morphology NRBCs present(A ) C[facility]ER [facility] Comment:Testing performed by : [facility], [address] [place], [place] [phone] Polychromasia 2+(A) C[facility]ER [facility] Comment:Testing performed by : [facility], [address] [place], [place] [phone] Hypochromasia 3+(A) [facility]ER [facility] Comment:Testing performed by : [facility], [address] [place], [place] [phone] Anisocytosis 1+(A) C[facility]ER [facility]J Comment:Testing performed by : [facility], [address] [place] [phone] Poikilocytosis 2+(A) CERNER [facility]J Comment:Testing performed by : [facility], [address] [place] [phone] Microcytes 2+(A) [facility] Comment:Testing performed by : [facility], [address] [place], [place] [phone] Macrocytes 1+(A) [facility] Comment:Testing performed by : [facility], [address] [place], [place] [phone] Schistocytes 1+(A) [facility] Comment:Testing performed by : [facility], [address] [place], [place] [phone] Elliptocytes 1+(A) [facility] Comment:Testing performed by : [facility], [address] [place], [place] [phone] Teardrop cells 1+(A) [facility] Comment:Testing performed by : [facility], [address] [place], [place] [phone] Platelet estimate Increased (A) [facility] Comment:Testing performed by : [facility], [address] [place], [place] [phone] Giant platelets Present(A ) [facility] Comment:Testing performed by : [facility], [address] [place], [place] [phone] Blood 04/06/2024 8:55 AM LEAD CONSULTANT 04/06/2024 9:26 AM LEAD CONSULTANT us Landy Lal MD LAB BLOOD ORDERABLES Final R esult Performing Organization Address City/[facility] Co de Phone Number [facility] [place] [address] * Ferritin (04/06/2024 8:55 AM LEAD CONSULTANT) Ferritin 63 30 - 400 ng/mL Blood 04/06/2024 8:55 AM LEAD CONSULTANT 04/06/2024 9:31 AM LEAD CONSULTANT Landy Lal MD LAB BLOOD ORDERABLES Final R esult Performing Organization Address City/[facility] Co de Phone Number [facility] [place] [address] * (ABNORMAL) Differential, auto (03/16/2024 12:03 PM LEAD CONSULTANT) Neutrophil abs 11.8(H) 1.5 - 6.5 K/cumm Comment:Testing performed by : [facility], [address] [place] [phone] Lymphocyte abs 1.1 0.8 - 3.3 K/cumm CERNER BJ Comment:Testing performed by : [facility], [address] [place] [phone] Monocyte abs 0.8 0.2 - 0.8 K/cumm CERNER BJ Comment:Testing performed by : [facility], [address] [place] [phone] Eosinophil abs 0.2 0.0 - 0.5 K/cumm CERNER BJ Comment:Testing performed by : [facility], [address] [place] [phone] Basophil abs 0.5(H) 0.0 - 0.1 K/cumm C[facility]ER [facility] Comment:Testing performed by : [facility], [address] [place] [phone] Neutrophil pct 81.8 % [facility] Comment: Interpretive Data Percent cell count reference ranges are not reported, since discordance with absolute values may lead to misinterpretation of CBC data. Current Interpretive Data was last revised on 2017. Testing performed by: [facility], [address] [place] [phone] Lymphocyte pct 7.3 % [facility] Comment: Interpretive Data Percent cell count reference ranges are not reported, since discordance with absolute values may lead to misinterpretation of CBC data. Current Interpretive Data was last revised on 2017. Testing performed by: [facility], [address] [place] [phone] Monocyte pct 5.8 % [facility] Comment: Interpretive Data Percent cell count reference ranges are not reported, since discordance with absolute values may lead to misinterpretation of CBC data. Current Interpretive Data was last revised on 2017. Testing performed by: [facility], [address] [place] [phone] Eosinophil pct 1.3 % [facility] Comment: Interpretive Data Percent cell count reference ranges are not reported, since discordance with absolute values may lead to misinterpretation of CBC data. Current Interpretive Data was last revised on 2017. Testing performed by: [facility], [address] [place] [phone] Basophil pct 3.8 % [facility] Comment: Interpretive Data Percent cell count reference ranges are not reported, since discordance with absolute values may lead to misinterpretation of CBC data. Current Interpretive Data was last revised on 2017. Testing performed by: [facility], [address] [place] [phone] Blood 03/16/2024 12:0 3 PM LEAD CONSULTANT 03/16/2024 12:37 PM LEAD CONSULTANT us Landy Lal MD LAB BLOOD ORDERABLES Final R esult [facility] [place] [address] * (ABNORMAL) Iron profile w/ IBC (03/16/2024 12:03 PM LEAD CONSULTANT) Iron 9(L) 50 - 150 mcg/dL TIBC 354 250 - 400 mcg/dL [facility] Transferrin saturation 3(L) 20 - 50 % [facility] Blood 03/16/2024 12:0 3 PM LEAD CONSULTANT 03/16/2024 12:41 PM LEAD CONSULTANT us Landy Lal MD LAB BLOOD ORDERABLES Final R esult [facility] [place] [address] * (ABNORMAL) CBC with auto differential (03/16/2024 12:03 PM LEAD CONSULTANT) WBC 14.4(H) 3.8 - 9.9 K/cumm Comment:Testing performed by : [facility], [address] [place] [address] Hgb 6.5(L) 13.0 - 17.5 g/dL CERNER [facility] Comment: Critical Result HGB:6.5 Called to and read back by: MARGAUX EMERY RN at: 03/16/2024 12:51:23 by: Testing performed by: [facility], [address] [place], [place] [phone] Hct 24.2(L) 38.9 - 50.3 % [facility]ER [facility] Comment:Testing performed by : [facility], [address] [place], [place] [phone] Plt 428(H) 150 - 400 K/cumm CERNER BJ Comment:Testing performed by : [facility], [address] [place] [address] MPV 8.3 6.8 - 10.4 fL C[facility]ER [facility] Comment:Testing performed by : [facility], [address] [place] [address] RBC 3.20(L) 4.30 - 5.80 M/cumm CERNER [facility]J Comment:Testing performed by : [facility], [address] [place] [address] MCV 75.7(L) 81.3 - 96.4 fL [facility]ER [facility]J Comment:Testing performed by : [facility], [address] [place] [address] MCH 20.2(L) 27.1 - 33.3 pg C[facility]ER [facility]J Comment:Testing performed by : [facility], [address] [place] [address] MCHC 26.6(L) 32.3 - 35.7 g/dL [facility]ER [facility] Comment:Testing performed by : [facility], [address] [place] [address] RDW CV 32.6(H) 11.1 - 14.9 % [facility] Comment:Testing performed by : [facility], [address] [place] [phone] NRBC abs n/a 0.00 - 0.01 K/cumm [facility] Comment:Testing performed by : [facility], [address] [place] [phone] Blood 03/16/2024 12:0 3 PM LEAD CONSULTANT 03/16/2024 12:37 PM LEAD CONSULTANT Landy Lal MD LAB BLOOD ORDERABLES Edited Result - Final Performing Organization Address [facility]/ZIP Co de Phone Number [facility] [place] [address] * Ferritin (03/16/2024 12:03 PM LEAD CONSULTANT) Pathologist [facility] Ferritin 34 30 - 400 ng/mL Blood 03/16/2024 12:0 3 PM LEAD CONSULTANT 03/16/2024 12:41 PM LEAD CONSULTANT us Landy Lal MD LAB BLOOD ORDERABLES Final R esult Performing Organization Address [facility] de Phone Number [facility] [place] [address] * (ABNORMAL) CBC with auto differential (03/09/2024 9:34 AM LEAD CONSULTANT) WBC 19.5(H) 3.8 - 9.9 K/cumm Comment:Testing performed by : [facility], [address] [place] [phone] Hgb 8.1(L) 13.0 - 17.5 g/dL [facility] Comment:Testing performed by : [facility], [address] [place] [phone] Hct 28.8(L) 38.9 - 50.3 % [facility] Comment:Testing performed by : [facility], [address] [place] [address] Plt 845(H) 150 - 400 K/cumm CERLALI BJ Comment:Testing performed by : [facility], [address] [place] [address] MPV 7.8 6.8 - 10.4 fL CERLALI BJ Comment:Testing performed by : [facility], [address] [place] [address] RBC 3.59(L) 4.30 - 5.80 M/cumm CERLALI BJ Comment:Testing performed by : [facility], [address] [place] [address] MCV 80.1(L) 81.3 - 96.4 fL CERLALI BJ Comment:Testing performed by : [facility], [address] [place] [address] MCH 22.5(L) 27.1 - 33.3 pg [facility] Comment:Testing performed by : [facility], [address] [place] [address] MCHC 28.1(L) 32.3 - 35.7 g/dL CERLALI BJ Comment:Testing performed by : [facility], [address] [place] [address] RDW CV 32.6(H) 11.1 - 14.9 % [facility] Comment:Testing performed by : [facility], [address] [place] [address] NRBC abs NA 0.00 - 0.01 K/cumm [facility] Comment:Testing performed by : [facility], [address] [place] [address] Blood 03/09/2024 9:34 AM LEAD CONSULTANT 03/09/2024 9:35 AM LEAD CONSULTANT us Landy Lal MD LAB BLOOD ORDERABLES Final R esult [facility] [place] [address] * (ABNORMAL) Manual Differential (03/09/2024 9:34 AM LEAD CONSULTANT) Cells Counted 198 Comment:Testing performed by : [facility], [address] [place] [phone] Neutrophil abs 17.2(H) 1.5 - 6.5 K/cumm [facility] Comment:Testing performed by : [facility], [address] [place] [phone] Lymphocyte abs 0.4(L) 0.8 - 3.3 K/cumm [facility] Comment:Testing performed by : [facility], [address] [place], [place] [phone] Monocyte abs 1.0(H) 0.2 - 0.8 K/cumm [facility] Comment:Testing performed by : [facility], [address] [place], [place] [phone] Eosinophil abs 0.2 0.0 - 0.5 K/cumm [facility] Comment:Testing performed by : [facility], [address] [place] [phone] Basophil abs 0.6(H) 0.0 - 0.1 K/cumm [facility] Comment:Testing performed by : [facility], [address] [place] [phone] Neutrophil pct 86.0 % [facility] Comment: Interpretive Data Percent cell count reference ranges are not reported, since discordance with absolute values may lead to misinterpretation of CBC data. Current Interpretive Data was last revised on 2017. Testing performed by: [facility], [address] [place] [phone] Lymphocyte pct 2.0 % [facility] Comment: Interpretive Data Percent cell count reference ranges are not reported, since discordance with absolute values may lead to misinterpretation of CBC data. Current Interpretive Data was last revised on 2017. Testing performed by: [facility], [address] [place] [phone] Monocyte pct 5.0 % [facility] Comment: Interpretive Data Percent cell count reference ranges are not reported, since discordance with absolute values may lead to misinterpretation of CBC data. Current Interpretive Data was last revised on 2017. Testing performed by: [facility], [address] [place] [phone] Eosinophil pct 1.0 % [facility] Comment: Interpretive Data Percent cell count reference ranges are not reported, since discordance with absolute values may lead to misinterpretation of CBC data. Current Interpretive Data was last revised on 2017. Testing performed by: [facility], [address] [place], [place] [phone] Basophil pct 3.0 % [facility] Comment: Interpretive Data Percent cell count reference ranges are not reported, since discordance with absolute values may lead to misinterpretation of CBC data. Current Interpretive Data was last revised on 2017. Testing performed by: [facility], [address] [place] [phone] Metamyelocyte pct 2.0 % [facility] Comment:Testing performed by : [facility], [address] [place] [phone] Myelocyte pct 1.0 % [facility] Comment:Testing performed by : [facility], [address] [place] [phone] Variant lymph pct 1.0 % [facility] Comment:Testing performed by : [facility], [address] [place] [phone] RBC morphology NRBCs present(A ) [facility] Comment:Testing performed by : [facility], [address] [place] [phone] Polychromasia 1+(A) [facility] Comment:Testing performed by : [facility], [address] [place] [phone] Hypochromasia 1+(A) [facility] Comment:Testing performed by : [facility], [address] [place] [phone] Anisocytosis 1+(A) [facility] Comment:Testing performed by : [facility], [address] [place] [phone] Microcytes 1+(A) [facility] Comment:Testing performed by : [facility], [address] [place] [phone] Macrocytes 1+(A) [facility] Comment:Testing performed by : [facility], [address] [place] [phone] Elliptocytes 1+(A) [facility] Comment:Testing performed by : [facility], [address] [place] [phone] Target cells 1+(A) [facility] Comment:Testing performed by : [facility], [address] [place], [place] [phone] Teardrop cells 1+(A) [facility] Comment:Testing performed by : [facility], [address] [place] [phone] Platelet estimate Increased (A) [facility] Comment:Testing performed by : [facility], [address] [place] [phone] Giant platelets Present(A ) [facility] Comment:Testing performed by : [facility], [address] [place] [phone] Blood 03/09/2024 9:34 AM LEAD CONSULTANT 03/09/2024 9:35 AM LEAD CONSULTANT Landy Lal MD LAB BLOOD ORDERABLES Final R esult [facility] [place] [address] * (ABNORMAL) Iron profile w/ IBC (03/09/2024 9:27 AM LEAD CONSULTANT) Iron 25(L) 50 - 150 mcg/dL TIBC 312 250 - 400 mcg/dL [facility] Transferrin saturation 8(L) 20 - 50 % [facility] Blood 03/09/2024 9:27 AM LEAD CONSULTANT 03/09/2024 9:38 AM LEAD CONSULTANT us Landy Lal MD LAB BLOOD ORDERABLES Final R esult Performing Organization Address City/[facility] Co de Phone Number [facility] [place] [address] * Ferritin (03/09/2024 9:27 AM LEAD CONSULTANT) Pathologist [facility] Ferritin 84 30 - 400 ng/mL Blood 03/09/2024 9:27 AM LEAD CONSULTANT 03/09/2024 9:38 AM LEAD CONSULTANT us Landy Lal MD LAB BLOOD ORDERABLES Final R esult Performing Organization Address [facility] de Phone Number [facility] [place] [address] * eGFR (10/10/2023 7:17 PM CDT) [facility] eGFR >90 >=60 mL/min/1. 73 m2 Comment: Interpretive Data Reference Interval Normal ?>/= 90 mL/min/1.73m2 Mildly decreased* ? 60 - 89 mL/min/1.73m2 Mildly to moderately decreased ?45 - 59 mL/min/1.73m2 Moderately to severely decreased ??30 - 44 mL/min/1.73m2 Severely decreased ?15 - 29 mL/min/1.73m2 Kidney Failure ?< 15 ??mL/min/1.73m2 *Relative to young adult level Estimated glomerular filtration rate is determined by the 2020 CKD-EPI equation recommended by the National Kid[employer] (A Unifying Approach to GFR Estimation: Recommendations of the NKF-ASK Task Force on Reassessing the Inclusion of Race in Diagnosing Kidney Disease, JASN 2020). The CKD-EPI equation should not be used for patients with unstable renal function and has not been validated in children and those over 70. Current interpretive data was last reviewed 2021. Blood 10/10/2023 7:17 PM CDT 10/10/2023 7:51 PM CDT Stepan Carpenter MD LAB BLOOD ORDERABLES Final Result Performing Organization Address City/State/[facility] Co id Phone Number [facility] [place] [address] * Colonoscopy (07/01/2023 8:13 AM LEAD CONSULTANT) Anatomical Region Laterality Modality Other Narrative Procedure Note Will Diego MD - 07/01/2023 8:13 AM CST [facility] Patient Name: Kumar Henao Procedure Date: 07/01/2023 8:13 AM Date of : 1955 Admit Type: Outpatient Age: 67 Gender: Male Attending MD: Will Diego M.D. Room: [facility] ENDOSCOPY ROOM 4 Note Status: Finalized Procedure: Colonoscopy Indications: Iron deficiency anemia Referring MD: Barb Edi F.N.PAlex Providers: Will Diego M.D. Medicines: Monitored Anesthesia Care Complications: No immediate complications. Estimated Blood Loss: Estimated blood loss: none. Procedure: Pre-Anesthesia Assessment: - Immediately prior to administration ofmedications, the patient was re-assessed for adequacy to receive sedatives. - The risks and benefits of the procedure and the sedation options and risks were discussed with the patient. All questions were answered and informed consent was obtained. The benefits, risks and alternatives of theprocedure and sedation were discussed and informed consentwas obtained. All questions were answered. Please referto the signed informed consent document in the medical record. The scope was passed under direct vision.The [id number] endoscope was introduced through the anus and advanced to the cecum, identified by appendiceal orifice and ileocecal valve. The colonoscopy was performed without difficulty. The patient tolerated the procedure well. The qualityof the bowel preparation was adequate after copious irrigation. . The bowel preparation used wasGoLYTELY. Findings: The perianal and digital rectal examinations were normal. A 6 mm polyp was found in the ascending colon. The polyp was sessile. The polyp was removed with a cold snare. Resection and retrieval were complete. A few small-mouthed diverticula were found in the sigmoid colon, descending colon and transverse colon. There was no evidence of diverticular bleeding. Internal hemorrhoids were found during retroflexion. The hemorrhoids were small. Impression: - Single colonic polyp removed and retrieved - Left colonic diverticuli - Internal hemorrhoids Recommendation: No source of potential GI bleeding in the upper endoscopy and colonoscopy If there is a clinical evidence of GI bleeding, consider further workup with videocapsule endoscopyor GI referral Follow up pathology result from the removed polyp Electronically Signed by Will Diego M.D. Will Diego M.D. 07/01/2023 8:31:13 AM . Number of Addenda: 0 Note Initiated On: 07/01/2023 8:13 AM Will Diego MD ENDOSCOPY PROCEDURES F inal Result * Hemoglobin A1c (06/11/2023 9:37 PM LEAD CONSULTANT) Hgb A1C 5.5 4.0 - 5.6 % [facility] Estimated Average Glucose 111 mg/dL [facility] Comment: The ADA recommends reporting an estimated Average Glucose (eAG) with all Hemoglobin A1c results using the equation derived from a study of 507 normal and diabetic adults. ??Minority populations were underrepresented and children were not included. ?? (Diabetes Care 2020; 43(S1): S66-S76). ??The eAG is not equivalent to a fasting glucose. Blood 06/11/2023 9:37 PM LEAD CONSULTANT 06/11/2023 9:57 PM LEAD CONSULTANT Dang Smith MD LAB BLOOD ORDERABLES Final Result [facility] [place] [address] from Last 3 Months or Most Recently Relevant to Health Maintenance Insurance [facility] Member Subscriber Plan / Payer (Ef fective 2023-Present) Name:Kumar Henao Relation to Subscriber:Self Name:Kumar Henao Payer ID:[id number] (NAIC) Type:MEDICARE RISK OTHER Address: [address] Advance Directives For more information, please contact: [phone] Documents on File Type Date Recorded Patient 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 Consultant Expl anation ADVANCE DIRECTIVE 06/25/2023 4:47 PM [employer] AD[employer]ANCE DIRECTIVE 06/18/2023 12:38 AM YOLANDA R [employer] AD[employer] DIRECTIVE 06/15/2023 1:04 PM [employer] * Full Code (Latest Code Status on File) Date Activated Date Inactivated Comments 09/09/2023 9:57 PM 09/16/2023 4:54 PM * Full Code Date Activated Date Inactivated Comments 07/01/2023 7:26 AM 07/01/2023 1:42 PM * Full Code Date Activated Date Inactivated Comments 06/12/2023 3:45 AM 06/23/2023 4:17 PM Care Teams [employer] Treating Unit Operator Relationship Specialty Start Date End Date Barb Eid, DIE TECHNICIAN [address] [place] [address] PCP - General 02/22/20
--- OUTSIDE RECORDS SUMMARY | 2024-06-03 14:23 | XMS_ITS | Patient Health Summary ---
Author Organization [facility] Address [address] [place] [address] Care Team Providers Care Manager Banquet Name Role Phone AkankshaCarlos stanley Primary Care Provider Note from [facility],non-owned Affiliates and Associated Physician Practices is amultiple site organization consisting of ambulatory clinics and hospital sitesin [place], [place], [place] and [place]. This disclosure is being madepursuant to the Care Everywhere program and may not contain all information available regarding this patient. Last updated 18.[facility] Allergies No known active allergies Medications * [...] of blood transfusion s as patient is Taoist 12/30/2023 Social History Tobacco Use Types Packs/Day [...] Erica Moya MD US ORDERABLES Care Teams Manager Banquet Relationship Specialty Start Date End Date Carlos Vale, [address] [facility] [place] [address] [id number] PCP - General Family Medicine 12/02/23
--- OUTSIDE RECORDS SUMMARY | 2024-06-03 14:23 | XMS_ITS | Referral Summary ---
Author Organization [facility] al Address [address] [place] [address] Care Team Providers Care Notching Machine Operator Name Role Phone Barb Eid NP Primary Care Provider [phone] Encounters Date Type Department Care Team Description 05/12/2024 8:00 AM [employer]OTHERMAL PLANT MANAGER Infusion [facility] [address] [place], [place] [address] Floor 6 [place] [address] Microcytic anemia (Primary Dx); Iron deficiency anemia, unspecified iron deficiency anemia type; Arthritis 05/11/2024 10:30 AM GEOTHERMAL PLANT MANAGER Lab [facility] - Lab Collection [facility] Floor 6 [place] [address] Iron deficiency anemia, unspecified iron deficiency anemia type 05/11/2024 10:15 AM [employer]OTHERMAL PLANT MANAGER Infusion [facility]fusion [address] Floor 6 [place] [address] GI AVM (gastrointestinal arteriovenous vascular malformation) (Primary Dx); Iron deficiency anemia, unspecified iron deficiency anemia type 05/11/2024 9:15 AM [employer]OTHER[employer]AL PLANT MANAGER Office Visit [facility] Hematology [address] [place] [address] Floor 6 [place] [phone] Landy Lal MD Iron deficiency anemia, unspecified iron deficiency anemia type (Primary Dx) 05/11/2024 8:15 AM GEOTHERMAL PLANT MANAGER Lab [facility] Oncology Lab [address] [place] [address] 6 [place] [address] Iron deficiency anemia, unspecified iron deficiency anemia type 04/07/2024 11:30 AM [employer]OTHERMAL PLANT MANAGER Infusion [facility] 6 [place] [address] Microcytic anemia (Primary Dx) 04/06/2024 Orders Only [facility] Hematology [address] [place] [address] Floor 6 [place] [address] Margaux Emery 04/06/2024 10:30 AM [employer]OTHER[employer]AL PLANT MANAGER Infusion [facility] [address] 6 [place] [address] GI AVM (gastrointestinal arteriovenous vascular malformation) (Primary Dx); Iron deficiency anemia, unspecified iron deficiency anemia type 04/06/2024 9:30 AM GEOTHERMAL PLANT MANAGER Lab [facility] - Lab Collection [facility] 6 [place] [address] Iron deficiency anemia, unspecified iron deficiency anemia type 04/04/2024 Telephone [facility] Hematology [facility] Floor 6 [place] [phone] Margaux Emery 03/16/2024 Telephone [facility] Hematology [facility] 6 [place] [address] Shilpa Shepherd 03/16/2024 12:45 PM [employer]OTHER[employer]AL PLANT MANAGER Lab [facility] - Lab Collection [facility] 6 [place] [address] Iron deficiency anemia, unspecified iron deficiency anemia type 03/16/2024 3:00 PM [employer]OTHER[employer]AL PLANT MANAGER Infusion [facility] [address] 6 [place] [address] Microcytic anemia (Primary Dx); Iron deficiency anemia, unspecified iron deficiency anemia type 03/10/2024 Telephone [facility] Hematology [facility] Floor 6 [place] [phone] Margaux Emery 03/10/2024 Orders Only [facility] Hematology [facility] 6 [place] [phone] Margaux Emery Iron deficiency anemia, unspecified iron deficiency anemia type (Primary Dx) 03/09/2024 9:30 AM GEOTHERMAL PLANT MANAGER Lab [facility] - Lab Collection [facility] 6 [place] [address] Iron deficiency anemia, unspecified iron deficiency anemia type 03/09/2024 10:30 AM GEOTHERMAL PLANT MANAGER Infusion [facility] [address] Floor 6 [place] [address] GI AVM (gastrointestinal arteriovenous vascular malformation) (Primary Dx); Iron deficiency anemia, unspecified iron deficiency anemia type from Last 3 Months Allergies No known active allergies Medications furosemide [...] L/min into affected nostril(s) continuously as needed 4 Active Active Problems Problem Noted Date Diagnosed Date Chronic respiratory failure with hypoxia (CMS/HC C) 01/25/2024 Blood transfusion declined b ecause patient is [employer] 01/21/2024 Pulmonary hypertension 01/21/2024 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 PE on admission bl basilar crackles, LLE and distended abdomen. Work up: CXR with concern for pulm edema/ aspiration pneumonia, elevated NT pro BNP . Abdominal US with trace ascites, cholelithiasis without cholecystitis. S/p amp-sulbactam x3 days for possible aspiraiton pneumonia. [employer] CLE[employer]ER no risk for aspiration, regular diet. TSH [...] 06/11/2023 Assessment & Plan (06/22/2023 5:04 PM GEOTHER[employer]AL PLANT MANAGER): Presented with microcytic anemia with hemoglobin 4.6, MCV 60, iron studies consistent with iron deficiency. Unclear etiology, concern for chronic blood loss anemia although he denies any signs or symptoms of bleeding. Last colonoscopy 2019 reportedly with edematous polyp, repeat recommended 3-5 [...] agree with the plan above. Patient is [employer] and declines blood transfusion. Care team gave [...] 09/16/2020 Assessment & Plan (06/13/2023 6:58 PM [employer]OTHER[employer] PLANT MANAGER): -Hold home meds (metformin, Jardiance), Hgb A1C 5.4% monitor glucose- normal Limit glc checks Essential hypertension 06/08/2018 Assessment & Plan (06/12/2023 4:51 AM GEOTHERMAL PLANT MANAGER): -Holding amlodipine, lisinopril -Monitor BP Immunizations Name Administration Dates Next Due Influenza, Quad, Adjuvantated, Intramuscular Pneumococcal Polysaccharide PPV23 01/05/2020 Social History Tobacco Use Types Packs/Day Years Used Date Smoking Tobacco: Former Passive Smoke Exposure: Past Tobacco Cessation:Counseling Given: Not Answered [facility] [employer] Answer Date Recorded In the past 12 months has [employer], gas, oil, or water [employer] threatened to shut off services in your [...] 09/17/2023 How often do you attend chur ch or jain services? More than 4 times per year 09/17/2023 Do you belong to any clubs o r organizations such as rastafarian groups, unions, fraternal or athletic groups, or [...] place to sleep or slept in a mcc (including now)? No 09/17/2023 Personal Safety Answer [...] Comments Blood Pressure 114/77 05/12/2024 8:53 AM GEOTHERMAL PLANT MANAGER Pulse 81 05/12/2024 8:53 AM GEOTHERMAL PLANT MANAGER Temperature 36.5 ??C (97.7 ??F) 05/12/2024 8:53 AM CS T Respiratory Rate 18 05/12/2024 8:53 AM GEOTHERMAL PLANT MANAGER Oxygen Saturation 96% 05/12/2024 8:53 AM GEOTHERMAL PLANT MANAGER Inhaled Oxygen Concentration - - Weight 84 kg (185 lb 3 oz) 05/12/2024 8:53 AM CS T Height 167.6 cm (5' 6 ) 05/11/2024 10:30 AM GEOTHERMAL PLANT MANAGER Body Mass Index 29.89 05/11/2024 10:30 AM GEOTHERMAL PLANT MANAGER Plan of Treatment Not on file Procedures Procedure Name Priority Date/Time Associated Diagnosis Comments DIFFERENTIAL AUTO Routine 05/11/2024 10: 13 AM GEOTHERMAL PLANT MANAGER Iron deficiency anemia, unspecified iron deficiency anemia type IRON PROFILE W/ IBC Routine 05/11/2024 1 0:13 AM GEOTHER[employer]AL PLANT MANAGER Iron deficiency anemia, unspecified iron deficiency anemia type CBC WITH AUTO DIFFERENTIAL Routine 05/11/2024 10:13 AM [employer]OTHER[employer]AL PLANT MANAGER Iron deficiency anemia, unspecified iron deficiency anemia type FERRITIN Routine 05/11/2024 10:13 AM [employer]OTHER[employer]AL PLANT MANAGER Iron deficiency anemia, unspecified iron deficiency anemia type MANUAL DIFFERENTIAL Routine 04/06/2024 8 :55 AM GEOTHERMAL PLANT MANAGER Iron deficiency anemia, unspecified iron deficiency anemia type CBC WITH AUTO DIFFERENTIAL Routine 04/06/2024 8:55 AM GEOTHERMAL PLANT MANAGER Iron deficiency anemia, unspecified iron deficiency anemia type IRON PROFILE W/ IBC Routine 04/06/2024 8 :55 AM GEOTHERMAL PLANT MANAGER Iron deficiency anemia, unspecified iron deficiency anemia type FERRITIN Routine 04/06/2024 8:55 AM GEOTHERMAL PLANT MANAGER Iron deficiency anemia, unspecified iron deficiency anemia type DIFFERENTIAL AUTO Routine 03/16/2024 12: 03 PM [employer]OTHER[employer]AL PLANT MANAGER Iron deficiency anemia, unspecified iron deficiency anemia type CBC WITH AUTO DIFFERENTIAL Routine 03/16/2024 12:03 PM GEOTHERMAL PLANT MANAGER Iron deficiency anemia, unspecified iron deficiency anemia type FERRITIN Routine 03/16/2024 12:03 PM GEOTHER[employer]AL PLANT MANAGER Iron deficiency anemia, unspecified iron deficiency anemia type IRON PROFILE W/ IBC Routine 03/16/2024 1 2:03 PM GEOTHERMAL PLANT MANAGER Iron deficiency anemia, unspecified iron deficiency anemia type MANUAL DIFFERENTIAL Routine 03/09/2024 9 :34 AM GEOTHERMAL PLANT MANAGER Iron deficiency anemia, unspecified iron deficiency anemia type CBC WITH AUTO DIFFERENTIAL Routine 03/09/2024 9:34 AM GEOTHERMAL PLANT MANAGER Iron deficiency anemia, unspecified iron deficiency anemia type IRON PROFILE W/ IBC Routine 03/09/2024 9 :27 AM GEOTHERMAL PLANT MANAGER Iron deficiency anemia, unspecified iron deficiency anemia type FERRITIN Routine 03/09/2024 9:27 AM GEOTHERMAL PLANT MANAGER Iron deficiency anemia, unspecified iron deficiency anemia type EGFR STAT 10/10/2023 7:17 PM CDT COLONOSCOPY 07/01/2023 8:13 AM GEOTHERMAL PLANT MANAGER HEMOGLOBIN A1C STAT 06/11/2023 9:37 PM GEOTHERMAL PLANT MANAGER from Last 3 Months or Most Recently Relevant to Health Maintenance Results * (ABNORMAL) Differential, auto (05/11/2024 10:13 AM GEOTHERMAL PLANT MANAGER) Neutrophil abs 9.4(H) 1.5 - 6.5 K/cumm Comment:Testing performed by : [facility], [address] [place] [address] Lymphocyte abs 0.9 0.8 - 3.3 K/cumm [facility] Comment:Testing performed by : [facility], [address] [place] [phone] Monocyte abs 0.8 0.2 - 0.8 K/cumm [facility] Comment:Testing performed by : [facility], [address] [place], [place] [phone] Eosinophil abs 0.1 0.0 - 0.5 K/cumm [facility] Comment:Testing performed by : [facility], [address] [place] [phone] Basophil abs 0.5(H) 0.0 - 0.1 K/cumm [facility] Comment:Testing performed by : [facility], [address] [place] [phone] Neutrophil pct 79.9 % [facility] Comment: Interpretive Data Percent cell count reference ranges are not reported, since discordance with absolute values may lead to misinterpretation of CBC data. Current Interpretive Data was last revised on 2017. Testing performed by: [facility], [address] [place] [phone] Lymphocyte pct 7.5 % [facility] Comment: Interpretive Data Percent cell count reference ranges are not reported, since discordance with absolute values may lead to misinterpretation of CBC data. Current Interpretive Data was last revised on 2017. Testing performed by: [facility], [address] [place] [phone] Monocyte pct 7.0 % [facility] Comment: Interpretive Data Percent cell count reference ranges are not reported, since discordance with absolute values may lead to misinterpretation of CBC data. Current Interpretive Data was last revised on 2017. Testing performed by: [facility], [address] [place] [phone] Eosinophil pct 1.0 % [facility] Comment: Interpretive Data Percent cell count reference ranges are not reported, since discordance with absolute values may lead to misinterpretation of CBC data. Current Interpretive Data was last revised on 2017. Testing performed by: [facility], [address] [place] [phone] Basophil pct 4.6 % [facility] Comment: Interpretive Data Percent cell count reference ranges are not reported, since discordance with absolute values may lead to misinterpretation of CBC data. Current Interpretive Data was last revised on 2017. Testing performed by: [facility], [address] [place] [phone] Blood 05/11/2024 10:1 3 AM GEOTHERMAL PLANT MANAGER 05/11/2024 10:27 AM GEOTHERMAL PLANT MANAGER Landy Lal MD LAB BLOOD ORDERABLES Final R esult Performing Organization Address City/[facility] Co de Phone Number [facility] Department [place] [address] * (ABNORMAL) Iron profile w/ IBC (05/11/2024 10:13 AM GEOTHERMAL PLANT MANAGER) Iron 8(L) 50 - 150 mcg/dL TIBC 381 250 - 400 mcg/dL [facility] Transferrin saturation 2(L) 20 - 50 % [facility] Blood 05/11/2024 10:1 3 AM GEOTHERMAL PLANT MANAGER 05/11/2024 10:25 AM GEOTHERMAL PLANT MANAGER us Landy Lal MD LAB BLOOD ORDERABLES Final R esult Performing Organization Address City/[facility]/ZIP Co de Phone Number [facility] Department [place] [address] * (ABNORMAL) CBC with auto differential (05/11/2024 10:13 AM GEOTHERMAL PLANT MANAGER) WBC 11.7(H) 3.8 - 9.9 K/cumm Comment:Testing performed by : [facility], [address] [place] [phone] Hgb 5.2(L) 13.0 - 17.5 g/dL [facility] Comment: Critical Result HGB:5.2 Called to and read back by: PENNY EMERY RN at: 05/11/2024 10:49:06 by:ELYSE SPENCE. Testing performed by: [facility], [address] [place], [place] [phone] Hct 19.1(L) 38.9 - 50.3 % [facility] Comment:Testing performed by : [facility], [address] [place], [place] [phone] Plt 215 150 - 400 K/cumm C[facility]ER [facility] Comment:Testing performed by : [facility], [address] [place], [place] [phone] MPV 8.6 6.8 - 10.4 fL [facility] Comment:Testing performed by : [facility], [address] [place], [place] [phone] RBC 2.72(L) 4.30 - 5.80 M/cumm CERNER [facility]J Comment:Testing performed by : [facility], [address] [place], [place] [phone] MCV 70.2(L) 81.3 - 96.4 fL [facility] Comment:Testing performed by : [facility], [address] [place], [place] [phone] MCH 19.0(L) 27.1 - 33.3 pg C[facility]ER [facility]J Comment:Testing performed by : [facility], [address] [place], [place] [phone] MCHC 27.0(L) 32.3 - 35.7 g/dL [facility] Comment:Testing performed by : [facility], [address] [place], [place] [phone] RDW CV 32.1(H) 11.1 - 14.9 % [facility] Comment:Testing performed by : [facility], [address] [place], [place] [phone] NRBC abs 0.50(H) 0.00 - 0.01 K/cumm CERNER BJ Comment:Testing performed by : [facility], [address] [place], [place] [phone] Blood 05/11/2024 10:1 3 AM GEOTHERMAL PLANT MANAGER 05/11/2024 10:27 AM GEOTHERMAL PLANT MANAGER us Landy Lal MD LAB BLOOD ORDERABLES Final R esult Performing Organization Address [facility] Co de Phone Number [facility] [place] [address] * (ABNORMAL) Ferritin (05/11/2024 10:13 AM GEOTHERMAL PLANT MANAGER) Ferritin 23(L) 30 - 400 ng/mL Blood 05/11/2024 10:1 3 AM GEOTHERMAL PLANT MANAGER 05/11/2024 10:25 AM GEOTHERMAL PLANT MANAGER us Landy Lal MD LAB BLOOD ORDERABLES Final R esult Performing Organization Address [facility] de Phone Number [facility] [place] [address] * (ABNORMAL) Iron profile w/ IBC (04/06/2024 8:55 AM GEOTHERMAL PLANT MANAGER) Pathologist [facility] Iron 12(L) 50 - 150 mcg/dL TIBC 350 250 - 400 mcg/dL [facility] Transferrin saturation 3(L) 20 - 50 % [facility] Blood 04/06/2024 8:55 AM GEOTHERMAL PLANT MANAGER 04/06/2024 9:31 AM GEOTHERMAL PLANT MANAGER us Landy Lal MD LAB BLOOD ORDERABLES Final R esult Performing Organization Address [facility] [place] [address] * (ABNORMAL) CBC with auto differential (04/06/2024 8:55 AM GEOTHERMAL PLANT MANAGER) WBC 17.6(H) 3.8 - 9.9 K/cumm Comment:Testing performed by : [facility], [address] [place] [phone] Hgb 6.3(L) 13.0 - 17.5 g/dL C[facility] Comment: Results Consistent with Previous Results Testing performed by: [facility], [address] [place], [place] [phone] Hct 24.5(L) 38.9 - 50.3 % [facility] Comment:Testing performed by : [facility], [address] [place], [place] [phone] Plt 808(H) 150 - 400 K/cumm C[facility]ER [facility]J Comment:Testing performed by : [facility], [address] [place] [address] MPV 7.3 6.8 - 10.4 fL [facility] Comment:Testing performed by : [facility], [address] [place], [place] [phone] RBC 3.09(L) 4.30 - 5.80 M/cumm C[facility]ER [facility]J Comment:Testing performed by : [facility], [address] [place], [place] [phone] MCV 79.3(L) 81.3 - 96.4 fL [facility] Comment:Testing performed by : [facility], [address] [place], [place] [phone] MCH 20.3(L) 27.1 - 33.3 pg [facility] Comment: Results Consistent with Previous Results Testing performed by: [facility], [address] [place] [address] MCHC 25.7(L) 32.3 - 35.7 g/dL [facility] Comment: Results Consistent with Previous Results Testing performed by: [facility], [address] [place] [address] RDW CV 32.0(H) 11.1 - 14.9 % [facility] Comment:Testing performed by : [facility], [address] [place] [address] NRBC abs 0.60(H) 0.00 - 0.01 K/cumm [facility]ER [facility] Comment:Testing performed by : [facility], [address] [place] [phone] Blood 04/06/2024 8:55 AM GEOTHERMAL PLANT MANAGER 04/06/2024 9:26 AM GEOTHERMAL PLANT MANAGER Landy Lal MD LAB BLOOD ORDERABLES Final R esult [facility] Department [place] [address] * (ABNORMAL) Manual Differential (04/06/2024 8:55 AM GEOTHERMAL PLANT MANAGER) Cells Counted 194 Comment:Testing performed by : [facility], [address] [place] [phone] Neutrophil abs 13.9(H) 1.5 - 6.5 K/cumm CERLALI BJ Comment:Testing performed by : [facility], [address] [place], [place] [phone] Lymphocyte abs 1.9 0.8 - 3.3 K/cumm CERLALI BJ Comment:Testing performed by : [facility], [address] [place] [phone] Monocyte abs 1.1(H) 0.2 - 0.8 K/cumm CERLALI BJ Comment:Testing performed by : [facility], [address] [place] [phone] Eosinophil abs 0.0 0.0 - 0.5 K/cumm CERLALI BJ Comment:Testing performed by : [facility], [address] [place], [place] [phone] Basophil abs 0.4(H) 0.0 - 0.1 K/cumm CERLALI BJ Comment:Testing performed by : [facility], [address] [place] [phone] Neutrophil pct 79.0 % [facility] Comment: Interpretive Data Percent cell count reference ranges are not reported, since discordance with absolute values may lead to misinterpretation of CBC data. Current Interpretive Data was last revised on 2017. Testing performed by: [facility], [address] [place] [phone] Lymphocyte pct 11.0 % [facility] Comment: Interpretive Data Percent cell count reference ranges are not reported, since discordance with absolute values may lead to misinterpretation of CBC data. Current Interpretive Data was last revised on 2017. Testing performed by: [facility], [address] [place] [phone] Monocyte pct 6.0 % [facility] Comment: Interpretive Data Percent cell count reference ranges are not reported, since discordance with absolute values may lead to misinterpretation of CBC data. Current Interpretive Data was last revised on 2017. Testing performed by: [facility], [address] [place] [phone] Eosinophil pct 0.0 % [facility] Comment: Interpretive Data Percent cell count reference ranges are not reported, since discordance with absolute values may lead to misinterpretation of CBC data. Current Interpretive Data was last revised on 2017. Testing performed by: [facility], [address] [place] [phone] Basophil pct 2.0 % [facility] Comment: Interpretive Data Percent cell count reference ranges are not reported, since discordance with absolute values may lead to misinterpretation of CBC data. Current Interpretive Data was last revised on 2017. Testing performed by: [facility], [address] [place] [phone] Myelocyte pct 1.0 % [facility] Comment:Testing performed by : [facility], [address] [place] [phone] Variant lymph pct 2.0 % [facility] Comment:Testing performed by : [facility], [address] [place] [phone] Smudge cells, qual Present(A ) [facility] Comment:Testing performed by : [facility], [address] [place] [phone] RBC morphology NRBCs present(A ) [facility] Comment:Testing performed by : [facility], [address] [place] [phone] Polychromasia 2+(A) [facility] Comment:Testing performed by : [facility], [address] [place], [place] [phone] Hypochromasia 3+(A) [facility] Comment:Testing performed by : [facility], [address] [place], [place] [phone] Anisocytosis 1+(A) [facility] Comment:Testing performed by : [facility], [address] [place], [place] [phone] Poikilocytosis 2+(A) [facility] Comment:Testing performed by : [facility], [address] [place], [place] [phone] Microcytes 2+(A) [facility] Comment:Testing performed by : [facility], [address] [place], [place] [phone] Macrocytes 1+(A) [facility] Comment:Testing performed by : [facility], [address] [place], [place] [phone] Schistocytes 1+(A) [facility] Comment:Testing performed by : [facility], [address] [place], [place] [id number] Elliptocytes 1+(A) [facility] Comment:Testing performed by : [facility], [address] [place], [place] [phone] Teardrop cells 1+(A) [facility] Comment:Testing performed by : [facility], [address] [place], [place] [id number] Platelet estimate Increased (A) [facility] Comment:Testing performed by : [facility], [address] [place], [place] [phone] Giant platelets Present(A ) [facility] Comment:Testing performed by : [facility], [address] [place], [place] [id number] Blood 04/06/2024 8:55 AM [employer] PLANT MANAGER 04/06/2024 9:26 AM [employer]OTHERMAL PLANT MANAGER Landy Lal MD LAB BLOOD ORDERABLES Final R esult [facility] Department [place] [address] * Ferritin (04/06/2024 8:55 AM GEOTHERMAL PLANT MANAGER) Pathologist [facility] Ferritin 63 30 - 400 ng/mL Blood 04/06/2024 8:55 AM [employer]OTHER[employer] PLANT MANAGER 04/06/2024 9:31 AM GEOTHERMAL PLANT MANAGER Landy Lal MD LAB BLOOD ORDERABLES Final R esult Performing Organization Address [facility] Co de Phone Number [facility] Department [place] [address] * (ABNORMAL) Differential, auto (03/16/2024 12:03 PM [employer]OTHER[employer]AL PLANT MANAGER) [facility] Neutrophil abs 11.8(H) 1.5 - 6.5 K/cumm Comment:Testing performed by : [facility], [address] [place] [phone] Lymphocyte abs 1.1 0.8 - 3.3 K/cumm [facility] Comment:Testing performed by : [facility], [address] [place] [phone] Monocyte abs 0.8 0.2 - 0.8 K/cumm [facility] Comment:Testing performed by : [facility], [address] [place] [phone] Eosinophil abs 0.2 0.0 - 0.5 K/cumm [facility] Comment:Testing performed by : [facility], [address] [place] [phone] Basophil abs 0.5(H) 0.0 - 0.1 K/cumm [facility] Comment:Testing performed by : [facility], [address] [place] [phone] Neutrophil pct 81.8 % [facility] Comment: Interpretive Data Percent cell count reference ranges are not reported, since discordance with absolute values may lead to misinterpretation of CBC data. Current Interpretive Data was last revised on 2017. Testing performed by: [facility], [address] [place] [phone] Lymphocyte pct 7.3 % [facility] Comment: Interpretive Data Percent cell count reference ranges are not reported, since discordance with absolute values may lead to misinterpretation of CBC data. Current Interpretive Data was last revised on 2017. Testing performed by: [facility], [address] [place] [phone] Monocyte pct 5.8 % [facility] Comment: Interpretive Data Percent cell count reference ranges are not reported, since discordance with absolute values may lead to misinterpretation of CBC data. Current Interpretive Data was last revised on 2017. Testing performed by: [facility], [address] [place] [phone] Eosinophil pct 1.3 % [facility] Comment: Interpretive Data Percent cell count reference ranges are not reported, since discordance with absolute values may lead to misinterpretation of CBC data. Current Interpretive Data was last revised on 2017. Testing performed by: [facility], [address] [place] [phone] Basophil pct 3.8 % [facility] Comment: Interpretive Data Percent cell count reference ranges are not reported, since discordance with absolute values may lead to misinterpretation of CBC data. Current Interpretive Data was last revised on 2017. Testing performed by: [facility], [address] [place] [phone] Blood 03/16/2024 12:0 3 PM [employer] MANAGER 03/16/2024 12:37 PM [employer]OTHER[employer]AL PLANT MANAGER us Landy Lal MD LAB BLOOD ORDERABLES Final R esult [facility] Department [place] [address] * (ABNORMAL) Iron profile w/ IBC (03/16/2024 12:03 PM [employer] MANAGER) Iron 9(L) 50 - 150 mcg/dL TIBC 354 250 - 400 mcg/dL [facility] Transferrin saturation 3(L) 20 - 50 % [facility] Blood 03/16/2024 12:0 3 PM [employer] MANAGER 03/16/2024 12:41 PM [employer]OTHER[employer]ANT MANAGER Landy Lal MD LAB BLOOD ORDERABLES Final R esult [facility] Department [place] [address] * (ABNORMAL) CBC with auto differential (03/16/2024 12:03 PM [employer]OTHER[employer]ANT MANAGER) [facility] WBC 14.4(H) 3.8 - 9.9 K/cumm Comment:Testing performed by : [facility], [address] [place], [place] [phone] Hgb 6.5(L) 13.0 - 17.5 g/dL [facility] Comment: Critical Result HGB:6.5 Called to and read back by: MARGAUX EMERY RN at: 03/16/2024 12:51:23 by: Testing performed by: [facility], [address] [place] [address] Hct 24.2(L) 38.9 - 50.3 % [facility] Comment:Testing performed by : [facility], [address] [place] [address] Plt 428(H) 150 - 400 K/cumm [facility] Comment:Testing performed by : [facility], [address] [place] [address] MPV 8.3 6.8 - 10.4 fL [facility] Comment:Testing performed by : [facility], [address] [place] [address] RBC 3.20(L) 4.30 - 5.80 M/cumm [facility] Comment:Testing performed by : [facility], [address] [place] [address] MCV 75.7(L) 81.3 - 96.4 fL [facility] Comment:Testing performed by : [facility], [address] [place], [place] [phone] MCH 20.2(L) 27.1 - 33.3 pg [facility] Comment:Testing performed by : [facility], [address] [place], [place] [phone] MCHC 26.6(L) 32.3 - 35.7 g/dL [facility] Comment:Testing performed by : [facility], [address] [place], [place] [phone] RDW CV 32.6(H) 11.1 - 14.9 % [facility] Comment:Testing performed by : [facility], [address] [place], [place] [phone] NRBC abs n/a 0.00 - 0.01 K/cumm [facility] Comment:Testing performed by : [facility], [address] [place], [place] [phone] Blood 03/16/2024 12:0 3 PM [employer] MANAGER 03/16/2024 12:37 PM [employer]OTHER[employer]ANT MANAGER us Landy Lal MD LAB BLOOD ORDERABLES Edited Result - Final Performing Organization Address City/[facility]/ZIP Co de Phone Number [facility] Department [place] [address] * Ferritin (03/16/2024 12:03 PM [employer] MANAGER) Ferritin 34 30 - 400 ng/mL Blood 03/16/2024 12:0 3 PM [employer] MANAGER 03/16/2024 12:41 PM [employer]OTHER[employer] MANAGER us Landy Lal MD LAB BLOOD ORDERABLES Final R esult Performing Organization Address City/[facility]/ZIP Co de Phone Number [facility] Department [place] [address] * (ABNORMAL) CBC with auto differential (03/09/2024 9:34 AM GEOTHERMAL PLANT MANAGER) WBC 19.5(H) 3.8 - 9.9 K/cumm Comment:Testing performed by : [facility], [address] [place] [address] Hgb 8.1(L) 13.0 - 17.5 g/dL [facility] Comment:Testing performed by : [facility], [address] [place] [address] Hct 28.8(L) 38.9 - 50.3 % [facility] Comment:Testing performed by : [facility], [address] [place] [address] Plt 845(H) 150 - 400 K/cumm [facility] Comment:Testing performed by : [facility], [address] [place] [address] MPV 7.8 6.8 - 10.4 fL [facility] Comment:Testing performed by : [facility], [address] [place] [address] RBC 3.59(L) 4.30 - 5.80 M/cumm [facility] Comment:Testing performed by : [facility], [address] [place] [address] MCV 80.1(L) 81.3 - 96.4 fL [facility] Comment:Testing performed by : [facility], [address] [place] [address] MCH 22.5(L) 27.1 - 33.3 pg [facility] Comment:Testing performed by : [facility], [address] [place] [address] MCHC 28.1(L) 32.3 - 35.7 g/dL [facility] Comment:Testing performed by : [facility], [address] [place] [address] RDW CV 32.6(H) 11.1 - 14.9 % [facility] Comment:Testing performed by : [facility], [address] [place] [address] NRBC abs NA 0.00 - 0.01 K/cumm [facility] Comment:Testing performed by : [facility], [address] [place], [place] [phone] Blood 03/09/2024 9:34 AM [employer]OTHER[employer] PLANT MANAGER 03/09/2024 9:35 AM GEOTHERMAL PLANT MANAGER Landy Lal MD LAB BLOOD ORDERABLES Final R esult [facility] Department [place] [address] * (ABNORMAL) Manual Differential (03/09/2024 9:34 AM GEOTHERMAL PLANT MANAGER) Cells Counted 198 Comment:Testing performed by : [facility], [address] [place], [place] [phone] Neutrophil abs 17.2(H) 1.5 - 6.5 K/cumm [facility] Comment:Testing performed by : [facility], [address] [place], [place] [phone] Lymphocyte abs 0.4(L) 0.8 - 3.3 K/cumm [facility] Comment:Testing performed by : [facility], [address] [place], [place] [phone] Monocyte abs 1.0(H) 0.2 - 0.8 K/cumm [facility] Comment:Testing performed by : [facility], [address] [place], [place] [phone] Eosinophil abs 0.2 0.0 - 0.5 K/cumm [facility] Comment:Testing performed by : [facility], [address] [place], [place] [phone] Basophil abs 0.6(H) 0.0 - 0.1 K/cumm [facility] Comment:Testing performed by : [facility], [address] [place], [place] [phone] Neutrophil pct 86.0 % [facility] Comment: Interpretive Data Percent cell count reference ranges are not reported, since discordance with absolute values may lead to misinterpretation of CBC data. Current Interpretive Data was last revised on 2017. Testing performed by: [facility], [address] [place] [phone] Lymphocyte pct 2.0 % [facility] Comment: Interpretive Data Percent cell count reference ranges are not reported, since discordance with absolute values may lead to misinterpretation of CBC data. Current Interpretive Data was last revised on 2017. Testing performed by: [facility], [address] [place] [phone] Monocyte pct 5.0 % [facility] Comment: Interpretive Data Percent cell count reference ranges are not reported, since discordance with absolute values may lead to misinterpretation of CBC data. Current Interpretive Data was last revised on 2017. Testing performed by: [facility], [address] [place] [phone] Eosinophil pct 1.0 % [facility] Comment: Interpretive Data Percent cell count reference ranges are not reported, since discordance with absolute values may lead to misinterpretation of CBC data. Current Interpretive Data was last revised on 2017. Testing performed by: [facility], [address] [place] [phone] Basophil pct 3.0 % [facility] Comment: Interpretive Data Percent cell count reference ranges are not reported, since discordance with absolute values may lead to misinterpretation of CBC data. Current Interpretive Data was last revised on 2017. Testing performed by: [facility], [address] [place] [phone] Metamyelocyte pct 2.0 % [facility] Comment:Testing performed by : [facility], [address] [place] [phone] Myelocyte pct 1.0 % [facility] Comment:Testing performed by : [facility], [address] [place] [phone] Variant lymph pct 1.0 % [facility] Comment:Testing performed by : [facility], [address] [place] [phone] RBC morphology NRBCs present(A ) [facility] Comment:Testing performed by : [facility], [address] [place], [place] [phone] Polychromasia 1+(A) [facility] Comment:Testing performed by : [facility], [address] [place], [place] [phone] Hypochromasia 1+(A) [facility] Comment:Testing performed by : [facility], [address] [place], [place] [phone] Anisocytosis 1+(A) [facility] Comment:Testing performed by : [facility], [address] [place], [place] [phone] Microcytes 1+(A) [facility] Comment:Testing performed by : [facility], [address] [place], [place] [phone] Macrocytes 1+(A) [facility] Comment:Testing performed by : [facility], [address] [place], [place] [phone] Elliptocytes 1+(A) [facility] Comment:Testing performed by : [facility], [address] [place], [place] [phone] Target cells 1+(A) [facility] Comment:Testing performed by : [facility], [address] [place], [place] [phone] Teardrop cells 1+(A) [facility] Comment:Testing performed by : [facility], [address] [place], [place] [phone] Platelet estimate Increased (A) [facility] Comment:Testing performed by : [facility], [address] [place], [place] [phone] Giant platelets Present(A ) [facility] Comment:Testing performed by : [facility], [address] [place], [place] [phone] Blood 03/09/2024 9:34 AM [employer]OTHERMAL PLANT MANAGER 03/09/2024 9:35 AM GEOTHERMAL PLANT MANAGER Landy Lal MD LAB BLOOD ORDERABLES Final R esult Performing Organization Address [facility] de Phone Number [facility] [place] [address] * (ABNORMAL) Iron profile w/ IBC (03/09/2024 9:27 AM GEOTHERMAL PLANT MANAGER) [facility] Iron 25(L) 50 - 150 mcg/dL TIBC 312 250 - 400 mcg/dL [facility] Transferrin saturation 8(L) 20 - 50 % [facility] Blood 03/09/2024 9:27 AM GEOTHERMAL PLANT MANAGER 03/09/2024 9:38 AM GEOTHERMAL PLANT MANAGER us Landy Lal MD LAB BLOOD ORDERABLES Final R esult Performing Organization Address [facility] de Phone Number [facility] [place] [address] * Ferritin (03/09/2024 9:27 AM GEOTHERMAL PLANT MANAGER) [facility] Ferritin 84 30 - 400 ng/mL Blood 03/09/2024 9:27 AM GEOTHERMAL PLANT MANAGER 03/09/2024 9:38 AM GEOTHERMAL PLANT MANAGER us Landy Lal MD LAB BLOOD ORDERABLES Final R esult Performing Organization Address [facility] [place] [address] * eGFR (10/10/2023 7:17 PM CDT) Pathologist [facility] eGFR >90 >=60 mL/min/1. 73 m2 Comment: [...] 7:17 PM CDT 10/10/2023 7:51 PM CDT us Stepan Carpenter MD LAB BLOOD ORDERABLES Final Result [facility] Department of Laboratories [place], [place] [id number] * Colonoscopy (07/01/2023 8:13 AM GEOTHERMAL PLANT MANAGER) Anatomical Region Laterality Modality Other Narrative Procedure Note Will Diego MD - 07/01/2023 8:13 AM CST [facility] Patient Name: Kumar Henao Procedure Date: 07/01/2023 8:13 AM Date of : 1955 Admit Type: Outpatient Age: 67 Gender: Male Attending MD: Will Diego M.D. Room: [facility] ENDOSCOPY ROOM 4 Note Status: Finalized Procedure: Colonoscopy Indications: Iron deficiency anemia Referring MD: Tiffanie Montanez Providers: Will Diego M.D. Medicines: Monitored Anesthesia [...] The scope was passed under direct vision.The [id number] endoscope was introduced through the anus and [...] Result * Hemoglobin A1c (06/11/2023 9:37 PM GEOTHERMAL PLANT MANAGER) Hgb A1C 5.5 4.0 - 5.6 % [facility] Estimated Average Glucose 111 mg/dL [facility] Comment: The ADA recommends reporting an estimated Average Glucose (eAG) with all Hemoglobin A1c results using the equation derived from a study of 507 normal and diabetic adults. ??Minority populations were underrepresented and children were not included. ?? (Diabetes Care 2020; 43(S1): S66-S76). ??The eAG is not equivalent to a fasting glucose. Blood 06/11/2023 9:37 PM GEOTHERMAL PLANT MANAGER 06/11/2023 9:57 PM GEOTHERMAL PLANT MANAGER us Dang Smith MD LAB BLOOD ORDERABLES Final Result [facility] Department [place] [address] from Last 3 Months or Most Recently Relevant to Health Maintenance Insurance [facility] DUAL AL [facility] Advance Directives For more information, please contact: [phone] Documents on File Type Date Recorded Patient Digital Imaging Technician Expl anation ADVANCE DIRECTIVE 06/25/2023 4:47 PM POWER OF FLIGHT TOWER DISPATCHER-MEDICAL ADVANCE DIRECTIVE 06/18/2023 12:38 AM YOLANDA R OF FLIGHT TOWER DISPATCHER-MEDICAL ADVANCE DIRECTIVE 06/15/2023 1:04 PM POWER OF FLIGHT TOWER DISPATCHER-MEDICAL * Full Code (Latest Code Status on File) Date Activated Date Inactivated Comments 09/09/2023 9:57 PM 09/16/2023 4:54 PM * Full Code Date Activated Date Inactivated Comments 07/01/2023 7:26 AM 07/01/2023 1:42 PM * Full Code Date Activated Date Inactivated Comments 06/12/2023 3:45 AM 06/23/2023 4:17 PM Care Teams Notching Machine Operator Relationship Specialty Start Date End Date Barb Eid [place] [address] [place] [address] PCP - General 02/22/20
--- OUTSIDE RECORDS SUMMARY | 2024-06-03 14:23 | XMS_ITS | Clinical Summary ---
Author Organization [facility] Address [address] [place] [address]. [place] [address] [place] [address] Care Team Providers Care Grey Stock Recorder Name Role Phone Carlos Vale DO Primary Care Provider [phone] Allergies No known active allergies Medications triamcinolone [...] 20 MG tabletIndicatio ns:High output heart failure (CMS/[facility] HHS/HCC) Take 1 tablet (20 mg total) by mouth daily. 90 tablet 1 5 Active furosemide (LASIX) 20 MG tabletIndicatio ns:High output heart failure (CMS/HCC HHS/HCC) Take 1 tablet (20 mg total) by mouth daily. 90 tablet 1 4 025 Discontin ued(Reord er) Active Problems Problem Noted Date Diagnosed Date Pulmonary hypertension ([facility] HHS/HCC) 024 Right inguinal hernia 12/30/2023 Transfusion of blood product declined due to alevism reason 12/30/2023 Cigarette nicotine dependence in remission 11/10 Chronic respiratory failure with hypoxia (CMS/ [facility]) 11/11/2023 Vitamin B12 deficiency 11/11/2023 AVM (arteriovenous malformation) of small bowel, acquired 10/19/2023 High output heart failure ([facility] HHS/[facility]) 08/31 Iron deficiency anemia due to chronic [...] agree with the plan above. Patient is Latter day and declines blood transfusion. Care team gave [...] complication, without long-term current use of insulin ([facility]) 09/16/2020 Cataract of left eye, unspecified cataract [...] amp-sulbactam x3 days for possible aspiraiton pneumonia. COCOA BEAN CLEANER no risk for aspiration, regular diet. [...] agree with the plan above. Patient is Latter day and declines blood transfusion. Care team gave [...] the member residence Hypertension associated with diabetes ([facility]) 11/18/2022 11/11/2023 Overview (06/25/2023): Last Assessment & [...] Follow up in: three months with PCP, Administrative Assistant, Miner Placer, Vice President Global Advertising Sales and Established eye furnace caretaker Eustachian tube dysfunction, bilateral 05/15/2022 11/11/2023 Type 2 diabetes mellitus wit hout complication, without long-term current use of insulin ([facility]) 09/16/2020 11/11/2023 Overview (06/25/2023): Last Assessment & [...] Type Department Care Team Description 05/24/2024 Telephone [facility] [address] [place] [address] Carlos Vale, DO Appointment Reminder 05/18/2024 Telephone [facility] [address] [place] [address] Carlos Vale, DO Follow Up Call 05/11/2024 Telephone [facility], [address] [address] Sterling Trujillo MD Refill Request (FUROSEMIDE) 03/20/2024 11:15 AM SURGERY CENTER ADMINISTRATOR Office Visit [facility] [address] [place] [address] Sterling Trujillo MD CHF (CONSULT/) 03/20/2024 Travel [...] on file Legal Sex Male 2:25 PM SURGERY CENTER ADMINISTRATOR Gender Identity Not on file Sexual Orientation Not on file Last Filed Vital Signs Vital Sign Reading Time Taken Comments Blood Pressure 118/60 03/20/2024 11:19 AM SURGERY CENTER ADMINISTRATOR Pulse 69 03/20/2024 11:19 AM SURGERY CENTER ADMINISTRATOR Temperature 36.6 ??C (97.9 ??F) 11/11/2023 8:36 AM CD T Respiratory Rate 22 09/06/2023 10:49 AM CDT Oxygen Saturation 94% 03/20/2024 11:19 AM SURGERY CENTER ADMINISTRATOR 2L O2 Inhaled Oxygen Concentration - - Weight 82.6 kg (182 lb) 03/20/2024 11:19 AM SURGERY CENTER ADMINISTRATOR Height 167.6 cm (5' 6 ) 03/20/2024 11:19 AM SURGERY CENTER ADMINISTRATOR Body Mass Index 29.38 03/20/2024 11:19 AM SURGERY CENTER ADMINISTRATOR Plan of Treatment Health Maintenance Due Date [...] exists Influenza Adult (#1) 2024 PHQ-2 (Physician [place]) 05/03/2024 11/11/2023 Hemoglobin A1C 05/13/2024 11/11/2023, 02/0 01/2024, 06/11/2023, Additional history exists Kidney Health Evaluation 11/10/2024 11/11/2023 PHQ-2 (Physician [place]) 11/10/2024 11/11/2023 Diabetes: Retinopathy Eye Exam 11/18/2024 [...] this topic Medical Devices Implanted Type Area Oven Laborer Device Identifier Shelf Expiration Date Model / Serial / Lot Resolution 360 Clip Implanted:Qty: 1 on 08/18/2018 by Travis Carpenter MD at [facility] [employer] NATHANIEL [id number] 03/16/2021 / / [id number] Procedures Procedure Name Priority Date/Time Associated Diagnosis Comments HEMOGLOBIN, GLYCOSYLATED Routine 11/11/2023 Type 2 diabetes mellitus with diabetic microalbuminuria, without long-term current use of insulin ([facility]) COLONOSCOPY GENERIC (SCAN ORDER) 07/01/2023 DIABETIC RETINOPATHY EXAM (NEGATIVE)(SCAN ORDER) Routine 11/18/2022 LIPID PANEL Routine 05/15/2019 Healthcare maintenance HEPATITIS C ANTIBODY Routine 06/09/2018 9:27 AM SURGERY CENTER ADMINISTRATOR Need for hepatitis C screening test from Last 3 Months or Most Recently Relevant to Health Maintenance Results * HEMOGLOBIN, GLYCOSYLATED (11/11/2023) HGB A1C 6.0 % [facility] 11/11/2023 Carlos Vale DO LABORATORY Final Resul t [facility] [address] [place] [address], [place] [phone] * COLONOSCOPY GENERIC (SCAN ORDER) (07/01/2023) 07/01/2023 [facility] Scanned SCANNING Final Resu lt * DIABETIC RETINOPATHY EXAM (NEGATIVE) (11/18/2022) [facility] Scanned SCANNING Final Resu lt Performing Organization Address [facility] Co de Phone Number [facility] ONBASE * LIPID PANEL (05/15/2019) 05/15/2019 Barb Eid [facility] Edited Result - Final Performing Organization Address [facility] Co de Phone Number [facility] [address] [place] [address], [place] [phone] * HEPATITIS C ANTIBODY (06/09/2018 9:27 AM SURGERY CENTER ADMINISTRATOR) HEPATITIS C AB NON-REACTI VE NON-REACTI VE 06/09/2018 10:13 PM SURGERY CENTER ADMINISTRATOR [facility] 06/09/2018 9:27 AM SURGERY CENTER ADMINISTRATOR Barb Eid [facility] Final Result Performing Organization Address [facility] de Phone Number [facility] [address] [place] [address], [place] [phone] from Last 3 Months or Most Recently Relevant to Health Maintenance Insurance COLÓN Advance Directives * Full Code (Latest Code Status on File) Date Activated Date Inactivated Comments 06/11/2023 3:57 PM 06/11/2023 11:06 PM Care Teams Grey Stock Recorder Relationship Specialty Start Date End Date Carlos Vale DO [address] [address] PCP - General FAMILY PRACTICE 10/01/23
--- OUTSIDE RECORDS SUMMARY | 2024-06-03 14:23 | XMS_ITS | Clinical Summary ---
Author Organization [facility] Address [address], [facility] [address] [place] [address] Phone Care Team Providers Care Soybean Specialties Cook Name Role Phone Giselle Beltre ANUM Primary Care Provider [phone] Justino Pool MD Unavailable [phone] Social History Tobacco Use Types Packs/Day Years Used Date Smoking Tobacco: Never Assessed Sex and Gender Information Value Date Recorded Sex Assigned at Not on file Legal Sex Male 10:39 AM CHART SNATCHER Gender Identity Not on file Sexual Orientation [...] topic Insurance MEDICARE [place]ICAID [place] Care Teams [employer] Specialties Cook Relationship Specialty Start Date End Date Giselle Belt[place] [address] PCP - General Advanced Practice Nurse 07/01/23 Justino Pool MD [address] [place] [phone] Oncology 07/01/23
--- NOTE | 2024-06-03 14:34 | ECG_ITS ---
Test Date: 2024-06-03 14:54:05 Measurements Intervals [place] Rate: 91 P: 45 LA: 178 QRS: 2 QRSD: 95 T: -34 QT: 365 QTc: 449 Interpretive Statements SINUS RHYTHM POSSIBLE LEFT ATRIAL ENLARGEMENT INCOMPLETE RIGHT BUNDLE BRANCH BLOCK LOW QRS VOLTAGE IN PRECORDIAL LEADS NONSPECIFIC T-WAVE ABNORMALITY- DIFFUSE LEADS BASELINE WANDER- I, II, III, AVR, AVL, AVF, V1-V6 BORDERLINE ECG No previous ECG available for comparison Electronically Signed On 06-03-2024 18:13:08 POST FORM REMOVER by Cornelio Bill D.O.
--- NOTE | 2024-06-03 14:35 | ED_ITS ---
HPI - Male Genitourinary General Chief complaint: Urogenital-Male Stated complaint: SWOLLEN GENITALIA Time Seen by Provider: 06/03/24 13:22 Source: patient Mode of arrival: ambulatory Limitations: no limitations History of Present Illness HPI Narrative: This is a 68-year-old male that presents to the emergency department for swelling. Worsening over the last 2 weeks. Associated with exertional dyspnea. Patient with history of CHF, chronically wears 2 L nasal cannula. Reports worsening swelling in his lower extremities as well as genitalia. Denies chest pain. Related Data Home Medications ?Medication ?Instructions ?Recorded ?Confirmed ?Last Taken ?Type amlodipine 5 mg tablet 5 mg PO DAILY 06/05/19 06/03/24 Unknown History lisinopril 10 mg tablet 10 mg PO DAILY 06/05/19 06/03/24 Unknown History furosemide 20 mg tablet mg PO DAILY 06/03/24 06/03/24 History Allergies Allergy/AdvReac Type Severity Reaction Status Date / Time No Known Allergies Allergy Verified 06/03/24 13:50 Review of Systems 2 Review of Systems: CONSTITUTIONAL: Denies fever CARDIOVASCULAR: Reports edema. Denies chest pain RESPIRATORY: Reports dyspnea. All systems reviewed & are unremarkable except as noted in HPI and below PMFSH Past Medical History Medical History Anemia Diabetes HTN (hypertension) Pneumonia Surgical History Surgical History H/O elbow surgery rt Family History Family History Sibling Age: 72 Carcinoma of colon, Onset Age: 67 treated for colon cancer, doing well Social History Social History Years smoked: 40 Smoking status: Former smoker Tobacco type: cigarettes Second hand tobacco smoke exposure: No Alcohol intake: former Substance use: never Gender identity (if verbalized by the patient): Male Spiritual care concerns: No Agree to blood products: No Exam 2 Narrative: GENERAL: Chronically ill-appearing, well-nourished, and in no acute distress. HEAD: Normocephalic, atraumatic. EYES: EOMI. ENT: Nares clear, no rhinorrhea or epistaxis. Mucous membranes moist. Oropharynx without tonsillar hypertrophy exudate or other lesions. Bilateral TMs pearly miranda non-bulging NECK: Supple. No adenopathy or masses. CHEST: No respiratory distress. Rales at the lung bases. No wheezes or rhonchi HEART: Regular rate and rhythm. No murmur heard. Normal peripheral pulses. ABDOMEN: Edematous, nontender EXTREMITIES: Normal range of motion. 2+ pitting edema of the lower extremities up to the thighs, penis, scrotum and into the lower abdomen SKIN: Warm, dry, no rash. NEURO: No focal deficits. Alert and oriented x3. PSYCH: Normal mood and affect Course Course Emergency Course: Patient updated on his workup and need for admission. Patient will not stay in the hospital at this time. He also refused blood. He was given risks of doing so. He will be leaving AMA Vital Signs Vital signs: Vital Signs Temperature 97.5 F L 06/03/24 12:15 Pulse Rate 98 06/03/24 12:15 Respiratory Rate 16 06/03/24 12:15 Blood Pressure 116/68 06/03/24 12:15 Pulse Oximetry 96 06/03/24 12:15 Oxygen Delivery Room Air 06/03/24 12:15 Temperature 97.5 F L 06/03/24 13:35 Pulse Rate 89 06/03/24 16:53 Respiratory Rate 20 06/03/24 16:53 Blood Pressure 122/83 06/03/24 16:53 Pulse Oximetry 95 06/03/24 16:53 Oxygen Delivery Room Air 06/03/24 12:15 MDM - Male Genitourinary MDM Narrative Medical decision making narrative: Patient presents the emergency department for fluid overload. He is afebrile and nontoxic appearing. His vitals are stable. CBC with leukocytosis to 26. Also shows anemia with hemoglobin of 6.9. Metabolic panel without concerning findings. BNP is 2120. Chest x-ray showing pulmonary past represent mild pulmonary edema. Infection not excluded. Ultrasound venous Doppler without evidence of DVT in the lower extremities. Patient updated on his workup and need for admission. Patient will not stay in the hospital at this time. He also refused blood. He was given risks of doing so. He will be leaving AMA Differential Diagnosis Differential diagnosis: Likely urinary tract infection, acute retention of urine and other (Anasarca, in CHF exacerbation, anemia, DVT) Lab Data Attestation: I reviewed the patient's lab results. 06/03/24 15:11 06/03/24 15:11 Labs: Lab Results 06/03/24 06/03/24 06/03/24 Range/Units 14:34 15:11 15:11 WBC 26.0 H (4.5-10.0) K/mm3 RBC 3.29 L (4.6-6.20) M/mm3 Hgb 6.9 L* D (14.0-18.0) g/dL Hct 29.0 L (42.0-52.0) % MCV 88.1 (80-100) fl MCH 21.0 L (26-34) pg MCHC 23.8 L (32-36) g/dl RDW 30.7 H (11.5-14.5) % Plt Count 1053 H D (150-375) k/mm3 MPV 10.2 (7.4-10.4) fl Immature Gran % (Auto) 4.1 H (0-0.5) % Neut % (Auto) 76.6 H (45.5-73.1) % Lymph % (Auto) 10.5 L (18.3-44.2) % Wallace % (Auto) 5.9 (2.6-8.5) % Eos % (Auto) 1.0 (0-4.4) % Baso % (Auto) 1.9 H (0.2-1.2) % Lymph # (Auto) 2.72 (0.9-3.2) K/mm3 Wallace # (Auto) 1.5 H (0.1-0.6) K/mm3 Eos # (Auto) 0.3 (0-0.3) K/mm3 Baso # (Auto) 0.5 H (0.0-0.1) K/mm3 Abs Immat Gran (auto) 1.07 H (0.00-0.031) K/mm3 Absolute Neuts (auto) 19.9 H (1.3-6.7) K/mm3 Absolute Nucleated RBC 2.560 H (0.0-0.012) K/mm3 Nucleated RBC % 9.8 H (0.0-0.2) % Platelet Estimate Increased (Adequate) Hypochromasia 1+ Anisocytosis 1+ Ovalocytes 1+ Schistocytes None seen Sodium 141 (137-145) mmol/L Potassium 4.2 (3.4-5.0) mmol/L Chloride 107 (98-107) mmol/L Carbon Dioxide 27 (22-30) mmol/L Anion Gap 7 (4-12) mmol/L BUN 16 (9-20) mg/dL Creatinine 0.97 (0.7-1.3) mg/dL Estim Creat Clear Calc 67 ml/min Estimated GFR > 60 (59 - ) Glucose 127 H (65-110) mg/dL Calcium 8.7 (8.4-10.2) mg/dL Total Bilirubin 0.7 (0.2-1.3) mg/dL AST 69 H (17-59) U/L ALT 11 (6-50) U/L Alkaline Phosphatase 127 H (38-126) U/L Troponin I < 0.012 Cancelled (0.000-0.034) ng/mL NT-Pro-B Natriuret Pep 2120 H (19.9-100) pg/mL Total Protein 8.0 (6.3-8.2) g/dL Albumin 3.6 (3.5-5.1) g/dL Urine Color Yellow (Yellow) Urine Appearance Turbid H (Clear) Urine pH 5.5 (5.0-9.0) Ur Specific [place] 1.012 (1.001-1.035) Urine Protein 1+ H (Negative) mg/dL Urine Glucose (UA) Negative (Negative) mg/dL Urine Ketones Negative (Negative) mg/dL Ur Blood (Man) Negative (Negative) Urine Nitrate Negative (Negative) Urine Bilirubin Negative (Negative) Urine Urobilinogen 0.2 (<2.0) mg/dL Add Ur Microanalysis Reviewed Leukocyte Esterase Rfl Negative (Negative) AIDEN/UL Urine RBC 0-2 (0-2) /hpf Urine WBC 0-5 (0-3) /hpf Ur Squamous Epith Cells None seen (Few) /hpf Urine Bacteria None seen /hpf Urine Casts 11-20 Imaging Data Radiologist's impression: ITS Impressions Chest X-Ray 06/03/24 15:20 IMPRESSION: Pulmonary opacities likely representing mild pulmonary edema. Infection is not excluded. Venous Doppler Study 06/03/24 15:51 IMPRESSION: Patent bilateral lower extremity veins. No evidence of deep venous thrombosis. Critical Care Time Critical Care Time Critical Care Time: Yes Total Critical Care Time: 35 Discharge Plan Discharge Clinical Impression: Anemia, Anasarca, Pneumonia Patient Disposition: Left Against Medical Advice Condition: Guarded Prognosis Instructions: Community Acquired Pneumonia (ED), Anemia (ED), Edema (ED) Additional Instructions: Please return at any time for further evaluation/management. If not you need to have very close follow up with your primary doctor. Your hemoglobin is very low today and you are very fluid overloaded Take oral antibiotics as prescribed. Take your water pill (Furosemide) and iron supplementation daily Patient Language: [place] Prescriptions: New azithromycin 250 mg tablet 250 mg PO DAILY 4 Days Qty: 4 0RF Rx Instructions: start on day 2 of therapy amoxicillin 500 mg capsule 1,000 mg PO Q8H 4 Days Qty: 24 0RF No Action budesonide-formoterol [Symbicort] 160-4.5 mcg/actuation HFA aerosol inhaler 2 puff INHALATION Q12H Qty: 10.2 2RF amlodipine 5 mg tablet 5 mg PO DAILY lisinopril 10 mg tablet 10 mg PO DAILY furosemide 20 mg tablet PO DAILY Follow-up/Referrals: UNKNOWN,DOCTOR [Primary Care Provider] -
[2024-06-03 14:54] LABS: Add Urine Microscopic? YES; Appearance Urine Turbid (Clear); Bacteria Urine None Seen /hpf; Bilirubin Urine Negative (Negative); Blood Urine Negative (Negative); Color Urine Yellow (Yellow); Glucose Urine UA Negative (Negative); Ketones Urine Negative (Negative); Leukocyte Esterase Ur Negative LEU/UL (Negative); Need Manual Microscopic Reviewed; Nitrate Urine Negative (Negative); Protein Urine 1+ mg/dL (Negative); RBC Urine 0-2 /hpf (0-2); Specific Grav Ur 1.012 (1.001-1.035); Squamous Epithelial Cell Urine None Seen /hpf (Few); Urobilinogen Urine 0.2 mg/dL (<2.0); WBC Urine 0-5 /hpf (0-3); pH Urine 5.5 (5.0-9.0)
[2024-06-03 15:04] VITALS: BP 115/77; PULSE 91; RESP 22; O2SAT 100
[2024-06-03 15:17] LABS: Basophils Absolute Auto 0.5 K/mm3 (0.0-0.1); Basophils Percent Auto 1.9 % (0.2-1.2); Eosinophils Absolute Auto 0.3 K/mm3 (0-0.3); Immature Granulocyte Absolute 1.07 K/mm3 (0.00-0.031); Immature Granulocyte Percent A 4.1 % (0-0.5); Lymphocytes Absolute Auto 2.72 K/mm3 (0.9-3.2); Lymphocytes Percent Auto 10.5 % (18.3-44.2); Mean Corpuscular HGB Conc 23.8 g/dl (32-36); Mean Corpuscular Volume 88.1 fl (80-100); Mean Platelet Volume 10.2 fl (7.4-10.4); Monocytes Absolute Auto 1.5 K/mm3 (0.1-0.6); Monocytes Percent Auto 5.9 % (2.6-8.5); Neutrophils Absolute Auto 19.9 K/mm3 (1.3-6.7); Neutrophils Percent Auto 76.6 % (45.5-73.1); Nucleated Red Blood Cells Perc 9.8 % (0.0-0.2); Red Blood Count 3.29 M/mm3 (4.6-6.20); Red Cell Distribution Width 30.7 % (11.5-14.5)
[2024-06-03 15:31] LABS: Alanine Aminotransferase 11 U/L (6-50); Albumin Level 3.6 g/dL (3.5-5.1); Alkaline Phosphatase 127 U/L (38-126); Anion Gap 7 mmol/L (4-12); Aspartate Amino Transferase 69 U/L (17-59); Bilirubin,Total 0.7 mg/dL (0.2-1.3); Blood Urea Nitrogen 16 mg/dL (9-20); Calcium 8.7 mg/dL (8.4-10.2); Carbon Dioxide 27 mmol/L (22-30); Chloride 107 mmol/L (98-107); Estimated CRCL calculation 67 ml/min; Estimated Glomerular Filt Rate > 60; Glucose 127 mg/dL (65-110); Potassium 4.2 mmol/L (3.4-5.0); Sodium 141 mmol/L (137-145)
[2024-06-03 15:37] LABS: Hemoglobin 6.9 g/dL (14.0-18.0)
[2024-06-03 15:38] LABS: Platelet Count Result 1053 k/mm3 (150-375)
[2024-06-03 15:39] LABS: Hypochromasia 1+; Platelet Estimate Increased (Adequate)
[2024-06-03 15:40] LABS: Anisocytosis 1+; Ovalocytes 1+; Schistocytes None Seen
[2024-06-03 15:42] LABS: NT Pro B Type Natriuretic Pept 2120 pg/mL (19.9-100); Troponin I < 0.012 ng/mL (0.000-0.034)
[2024-06-03] MEDS: FUROSEMIDE INJ 40 MG/4 ML VIAL IV PUSH (16:43)
[2024-06-03 16:53] VITALS: BP 122/83; PULSE 89; RESP 20; O2SAT 95
[2024-06-03] MEDS: AZITHROMYCIN 500 MG/NS 250 ML 500 MG/250 ML BAG 250 MG IVPB (16:57)
[2024-06-03 19:04] VITALS: BP 116/76; PULSE 97; RESP 20; O2SAT 94
--- NOTE | 2024-06-03 19:50 | PC.NURSE ---
Sahara SALINAS described risks of leaving AMA. Patient verbalizes understanding and signs AMA form. Patient assisted to the waiting room without incident.
[2024-06-03 19:53] VITALS: BP 114/80; PULSE 97; RESP 17; O2SAT 97
== END 2024-06-03 19:56 | disposition left against medical advice (07) ==
PROVIDERS: Emergency Provider Physician Assistant
DX: D64.9 Anemia, unspecified (principal); R60.1 Generalized edema; J18.9 Pneumonia, unspecified organism; I10 Essential (primary) hypertension; E11.9 Type 2 diabetes mellitus without complications; Z87.891 Personal history of nicotine dependence; I50.9 Heart failure, unspecified; Z99.81 Dependence on supplemental oxygen
CPT/HCPCS: 36415; 71046; 80053; 81001; 83880; 84484; 85025; 87040; 87181; 93005; 93970; 96361; 96365; 96368; 96375; 99284; J0456; J0696; J1940